=== PATIENT | male | born 1955 | race Caucasian/White ===

== ENCOUNTER 2020-11-01 05:18 | Inpatient (IN) ==
[2020-11-01] MEDS ORDERED: ONDANSETRON INJ 2 MG/ML 2 ML VIAL ONE (05:39)
[2020-11-01 05:47] LABS: Basophils # (auto) 0.02 K/uL (0-0.2); Basophils % (auto) 0.3 %; Eosinophils % (auto) 1.3 %; Hematocrit (blood only) 44.5 % (42-52); Hemoglobin 15.2 g/dL (14.0-18.0); Lymphocytes # (auto) 1.29 K/uL (1.2-3.4); Lymphocytes % (auto) 16.8 %; Mean Corpuscular Hemoglobin 32.4 pg (25-34); Mean Corpuscular Hgb Conc 34.2 g/dL (32-36); Mean Corpuscular Volume 94.9 fL (80-100); Mean Platelet Volume 10.4 fL (7.4-10.4); Monocytes # (auto) 0.49 K/uL (0.11-0.59); Monocytes % (auto) 6.4 %; Neutrophils # (auto) 5.79 K/uL (1.4-6.5); Neutrophils % (auto) 75.2 %; Platelet Count 261 K/uL (130-400); RDW Coefficient of Variation 12.9 % (11.5-14.5); RDW Standard Deviation 44.5 fL (36.4-46.3); Red Blood Count 4.69 M/uL (4.7-6.1); White Blood Count 7.69 K/uL (4.8-10.8)
--- NOTE | 2020-11-01 05:49 | Emergency Department Note ---
Impression & Plan Acute cerebrovascular accident (CVA), New onset a-fib ED Provider Note NAME: DEVIN ISAACS AGE: 65 SEX: M ARRIVES VIA: Ambulance INFORMANT: Patient ED PROVIDER(S): Raiza Jackson DO CHIEF COMPLAINT: Stroke PLAN: Disposition: Admitted to the ICU Condition: Stable MEDICAL DECISION MAKING: This is a 65-year-old male patient who presents to the emergency department with stroke symptoms. The patient went directly to CT scanner for CT of the brain, CTA of the head and neck. These were all negative. He was evaluated by Carina greene and met criteria for TPA. This was administered. His right-sided facial droop began to improve somewhat. I discussed the case with the patient's on the phone. I discussed the case with the [facility] hospitalist as well as the [facility] oil well services field supervisor. They will evaluate the patient for further management. Triage Nursing notes reviewed and agree with them. Additional history obtained from EMS Vital Signs: reviewed and remarkable for no significant abnormalities Differential diagnosis: Hypoglycemia, dehydration, intracranial hemorrhage, acute CVA, seizure ER treatment provided: IV tPA IV normal saline Diagnostics interpreted by me: ECG: Atrial fibrillation at a rate of 77. There is no ST segment elevation or signs of ischemia. There is no ectopy. Cardiac Monitoring: Atrial fibrillation at a rate of 75 Laboratory studies: See below Imaging studies: As per stat rad CT head: No ICH, mass-effect or edema. No evidence of acute cortical stroke. Visualized sinuses and mastoid air cells are clear. CTA head: Intracranial vascular structures including the anterior, middle and posterior cerebral arteries and basilar artery enhance normally. There is no enhancing mass. Dural sinuses enhance normally. Impression no vascular occlusion. CTA neck: Cervical vascular structures including the common carotid arteries, internal carotid arteries, and vertebral arteries and the joints normally with no aneurysmal dissection occlusions or stenosis. Soft tissues appear normal. Consultation(s): Dr. Medina-Carina greene None HPI: 65/M arrives for evaluation of stroke symptoms. 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 The patient noted that he had a headache and some slight dizziness. He took some Advil and got out of the truck. Once he was out of the truck, the headaches seem to worsen. He went inside the truck stop to take a shower and became very nauseated and started to vomit. Patient was unable to shower because of the dizziness and vomiting. As time passed, he noticed that he had some right-sided facial droop. ROS: See above HPI for pertinent positives & negatives. A total of 10 systems reviewed and were otherwise negative. PAST MEDICAL HISTORY:Hypothyroidism, GERD PAST SURGICAL HISTORY:See Below FAMILY HISTORY:See Below SOCIAL HISTORY:Patient works as a shuttle truck driver; he does not smoke or drink alcohol; he is HOME MEDICATIONS:Levothyroxine and Nexium ALLERGIES:None VITALS:See Below PHYSICAL EXAMINATION: HEENT: Head - normocephalic and atraumatic. Pupils are equal, round, and re active to light. Extraocular eye muscles are intact and sclera are anicteric. Ears - bilaterally patent canals with noninjected tympanic membranes and no evidence of hemotympanum. Nose - moist nasal mucosa without discharge. Mouth - moist buccal mucosa. Oropharynx is nonerythematous and there is no tonsillar exudate or edema noted. Neck: Supple; no JVD, nuchal rigidity, cervical lymphadenopathy, or auscultated bruits. Heart: Regular rate and rhythm. There is a normal S1 and S2 with no murmurs, clicks, or gallops appreciated. Lungs: Clear to auscultation bilaterally with no wheezes, rales, or rhonchi. Abdomen: Soft, completely nontender, nondistended, with good bowel sounds. There are no palpable pulsatile masses or hepatosplenomegaly. There is no guarding, rigidity, or rebound noted. Extremities: No evidence of cyanosis, clubbing, or edema. There are easily palpable peripheral pulses. Neuro:The patient is awake and alert, oriented to day, time, and place. Muscle strength is 5/5 in all 4 extremities. The patient has equal play leader strength and equal pedal push and pull. There are no cerebellar signs. Patient has obvious right-sided facial droop. The patient is having difficulty swallowing. ED COURSE: Times/Reassessments: 0520: The patient was evaluated in room B1. A complete history and physical was performed. A stroke alert had been called in the prehospital setting after medical command was received. Patient went directly to the CAT scanner. Upon returning to room B1 an order was placed for cont inuous cardiac monitoring. The patient was in atrial fibrillation at a rate of 75. An IV lock was initiated and a twelve-lead EKG was obtained as described above. Laboratory studies were drawn as above. I discussed the case with Dr. Medina from [facility]. He evaluated the patient. The patient was started on a normal saline drip after having a normal saline bolus. I discussed the case with Dr. Medina and he felt the patient was a candidate for TPA. I discussed with the pharmacist and it will be mixed. I contacted the patient's by phone. TPA was administered and the patient was observed very closely. I discussed the case with the [facility] Hospitalist as well as the Critical care medicine team. I have personally spent greater than 75 minutes of critical care time in the direct management of this patient. This includes bedside care, interpretation of diagnostic studies, and testing, discussion with consultants, patient, and family members, and other required patient management activities. This 75 minutes is in excess of all separately billable procedures. Raiza Jackson DO Past Med/Surg History Medical History (Updated 11/02/20 @ 00:57 by Raiza Jackson DO) Urinary retention Social History Smoking Status: Never smoker Hx Alcohol Use: No Hx Substance Use: No Preferred Language: Burundian Communication Ability: Effective Beliefs That Will Affect Care: None Current Living Situation: Spouse Feels Safe at Home: Yes Safety Concerns: Feels Safe At This Time Assistive Devices: None Allergies Allergies Allergy/AdvReac Type Severity Reaction Status Date / Time No Known Allergies Allergy Verified 11/01/20 06:00 Home Meds Home Medications Medication Instructions Recorded Confirmed esomeprazole magnesium [Nexium] 20 mg PO DAILY 11/01/20 11/01/20 levothyroxine 88 mcg PO DAILY 11/01/20 11/01/20 Results & Data (ED) Vital Signs Vital Signs - 24 hr 11/01/20 05:30 11/01/20 05:46 11/01/20 05:50 Temperature 35.0 C L Temperature Source Oral Pulse Rate 78 83 88 Pulse Rate [Apical] Pulse Rate from SpO2 Sensor 83 87 Respiratory Rate 20 20 20 Respiratory Effort / Characteristics Non-Labored Spontaneous Respiratory Depth Normal Blood Pressure 108/70 125/92 Blood Pressure [Left Arm] Blood Pressure Mean 82 103 Blood Pressure Mean [Left Arm] Pulse Oximetry 93 96 95 Oxygen Delivery Method Room Air Room Air Room Air Oxygen Flow Rate Sepsis New/Unexplained Change in Mental Status N/A Sepsis Action Taken by Nursing No Action Required 11/01/20 06:00 11/01/20 06:10 11/01/20 06:14 Temperature Temperature Source Pulse Rate 72 77 79 Pulse Rate [Apical] Pulse Rate from SpO2 Sensor 74 77 81 Respiratory Rate 18 16 16 Respiratory Effort / Characteristics Respiratory Depth Blood Pressure 134/80 152/85 H Blood Pressure [Left Arm] Blood Pressure Mean 98 107 Blood Pressure Mean [Left Arm] Pulse Oximetry 98 98 97 Oxygen Delivery Method Room Air Room Air Room Air Oxygen Flow Rate Sepsis New/Unexplained Change in Mental Status Sepsis Action Taken by Nursing 11/01/20 06:15 11/01/20 06:30 11/01/20 06:40 Temperature Temperature Source Pulse Rate 73 74 67 Pulse Rate [Apical] Pulse Rate from SpO2 Sensor 71 78 75 Respiratory Rate 18 18 18 Respiratory Effort / Characteristics Respiratory Depth Blood Pressure 152/85 H 140/98 Blood Pressure [Left Arm] Blood Pressure Mean 107 112 Blood Pressure Mean [Left Arm] Pulse Oximetry 98 95 96 Oxygen Delivery Method Room Air Room Air Room Air Oxygen Flow Rate Sepsis New/Unexplained Change in Mental Status Sepsis Action Taken by Nursing 11/01/20 06:45 11/01/20 06:50 11/01/20 07:00 Temperature Temperature Source Pulse Rate 79 70 Pulse Rate [Apical] 74 Pulse Rate from SpO2 Sensor 74 76 Respiratory Rate 18 18 18 Respiratory Effort / Characteristics Non-Labored Spontaneous Respiratory Depth Normal Blood Pressure Blood Pressure [Left Arm] 139/99 Blood Pressure Mean Blood Pressure Mean [Left Arm] 112 Pulse Oximetry 100 100 99 Oxygen Delivery Method Room Air Room Air Nasal Cannula Oxygen Flow Rate 2 Sepsis New/Unexplained Change in Mental Status Sepsis Action Taken by Nursing 11/01/20 07:01 11/01/20 07:10 Temperature Temperature Source Pulse Rate 69 79 Pulse Rate [Apical] Pulse Rate from SpO2 Sensor 80 81 Respiratory Rate 20 18 Respiratory Effort / Characteristics Respiratory Depth Blood Pressure 119/92 Blood Pressure [Left Arm] Blood Pressure Mean 101 Blood Pressure Mean [Left Arm] Pulse Oximetry 97 97 Oxygen Delivery Method Nasal Cannula Nasal Cannula Oxygen Flow Rate 2 2 Sepsis New/Unexplained Change in Mental Status Sepsis Action Taken by Nursing Laboratory Data Result diagrams: 11/01/20 05:32 11/01/20 05:32 Lab Results 11/01/20 11/01/20 11/01/20 Range/Units 05:32 05:32 05:32 WBC 7.69 (4.8-10.8) K/uL RBC 4.69 L (4.7-6.1) M/uL Hgb 15.2 (14.0-18.0) g/dL Hct 44.5 (42-52) % MCV 94.9 (80-100) fL MCH 32.4 (25-34) pg MCHC 34.2 (32-36) g/dL RDW Std Deviation 44.5 (36.4-46.3) fL RDW Coeff of Edmond 12.9 (11.5-14.5) % Plt Count 261 (130-400) K/uL MPV 10.4 (7.4-10.4) fL Immature Gran % (Auto) 0.0 % Neut % (Auto) 75.2 % Lymph % (Auto) 16.8 % [place] % (Auto) 6.4 % Eos % (Auto) 1.3 % Baso % (Auto) 0.3 % Neut # (Auto) 5.79 (1.4-6.5) K/uL Lymph # (Auto) 1.29 (1.2-3.4) K/uL [place] # (Auto) 0.49 (0.11-0.59) K/uL Eos # (Auto) 0.10 (0-0.5) K/uL Baso # (Auto) 0.02 (0-0.2) K/uL Immature Gran # (Auto) 0.00 (0.00-0.02) K/uL PT 10.2 (9.0-12.0) Seconds INR 1.0 (0.9-1.1) APTT 22.5 (21.0-31.0) Seconds PTT Ratio 0.9 Sodium (136-145) mmol/L Potassium (3.5-5.1) mmol/L Chloride (98-107) mmol/L Carbon Dioxide (21-32) mmol/L Anion Gap (3-11) BUN (7-18) mg/dl Creatinine (0.6-1.4) mg/dl Est Cr Clr Drug Dosing ml/min Est GFR ( Amer) ml/min Est GFR (Non-Af Amer) ml/min BUN/Creatinine Ratio (10-20) Glucose (70-99) mg/dl POC Glucose (70-99) mg/dl Calcium (8.5-10.1) mg/dl Magnesium (1.8-2.4) mg/dl Total Bilirubin (0.2-1) mg/dl AST (15-37) U/L ALT (12-78) U/L Alkaline Phosphatase (45-117) U/L Troponin I (0-0.045) ng/ml Total Protein (6.4-8.2) gm/dl Albumin (3.4-5.0) gm/dl Globulin (2.5-4.0) gm/dl Albumin/Globulin Ratio (0.9-2) COVID-19 Eval Order SARS-CoV-2 (PCR) (Negative) Blood Type Cancelled Antibody Screen Cancelled 11/01/20 11/01/20 11/01/20 Range/Units 05:32 05:40 06:06 WBC (4.8-10.8) K/uL RBC (4.7-6.1) M/uL Hgb (14.0-18.0) g/dL Hct (42-52) % MCV (80-100) fL MCH (25-34) pg MCHC (32-36) g/dL RDW Std Deviation (36.4-46.3) fL RDW Coeff of Edmond (11.5-14.5) % Plt Count (130-400) K/uL MPV (7.4-10.4) fL Immature Gran % (Auto) % Neut % (Auto) % Lymph % (Auto) % [place] % (Auto) % Eos % (Auto) % Baso % (Auto) % Neut # (Auto) (1.4-6.5) K/uL Lymph # (Auto) (1.2-3.4) K/uL [place] # (Auto) (0.11-0.59) K/uL Eos # (Auto) (0-0.5) K/uL Baso # (Auto) (0-0.2) K/uL Immature Gran # (Auto) (0.00-0.02) K/uL PT (9.0-12.0) Seconds INR (0.9-1.1) APTT (21.0-31.0) Seconds PTT Ratio Sodium 137 (136-145) mmol/L Potassium 3.6 (3.5-5.1) mmol/L Chloride 102 (98-107) mmol/L Carbon Dioxide 25 (21-32) mmol/L Anion Gap 10.0 (3-11) BUN 14 (7-18) mg/dl Creatinine 1.29 (0.6-1.4) mg/dl Est Cr Clr Drug Dosing 65.3 ml/min Est GFR ( Amer) 67.5 ml/min Est GFR (Non-Af Amer) 58.2 ml/min BUN/Creatinine Ratio 10.6 (10-20) Glucose 156 H (70-99) mg/dl POC Glucose 135 H (70-99) mg/dl Calcium 8.7 (8.5-10.1) mg/dl Magnesium 1.8 (1.8-2.4) mg/dl Total Bilirubin 1.2 H (0.2-1) mg/dl AST 19 (15-37) U/L ALT 23 (12-78) U/L Alkaline Phosphatase 78 (45-117) U/L Troponin I < 0.015 (0-0.045) ng/ml Total Protein 7.3 (6.4-8.2) gm/dl Albumin 3.8 (3.4-5.0) gm/dl Globulin 3.5 (2.5-4.0) gm/dl Albumin/Globulin Ratio 1.1 (0.9-2) COVID-19 Eval Order Covid19 at [facility] SARS-CoV-2 (PCR) (Negative) Blood Type Antibody Screen 11/01/20 Range/Units 06:06 WBC (4.8-10.8) K/uL RBC (4.7-6.1) M/uL Hgb (14.0-18.0) g/dL Hct (42-52) % MCV (80-100) fL MCH (25-34) pg MCHC (32-36) g/dL RDW Std Deviation (36.4-46.3) fL RDW Coeff of Edmond (11.5-14.5) % Plt Count (130-400) K/uL MPV (7.4-10.4) fL Immature Gran % (Auto) % Neut % (Auto) % Lymph % (Auto) % [place] % (Auto) % Eos % (Auto) % Baso % (Auto) % Neut # (Auto) (1.4-6.5) K/uL Lymph # (Auto) (1.2-3.4) K/uL [place] # (Auto) (0.11-0.59) K/uL Eos # (Auto) (0-0.5) K/uL Baso # (Auto) (0-0.2) K/uL Immature Gran # (Auto) (0.00-0.02) K/uL PT (9.0-12.0) Seconds INR (0.9-1.1) APTT (21.0-31.0) Seconds PTT Ratio Sodium (136-145) mmol/L Potassium (3.5-5.1) mmol/L Chloride (98-107) mmol/L Carbon Dioxide (21-32) mmol/L Anion Gap (3-11) BUN (7-18) mg/dl Creatinine (0.6-1.4) mg/dl Est Cr Clr Drug Dosing ml/min Est GFR ( Amer) ml/min Est GFR (Non-Af Amer) ml/min BUN/Creatinine Ratio (10-20) Glucose (70-99) mg/dl POC Glucose (70-99) mg/dl Calcium (8.5-10.1) mg/dl Magnesium (1.8-2.4) mg/dl Total Bilirubin (0.2-1) mg/dl AST (15-37) U/L ALT (12-78) U/L Alkaline Phosphatase (45-117) U/L Troponin I (0-0.045) ng/ml Total Protein (6.4-8.2) gm/dl Albumin (3.4-5.0) gm/dl Globulin (2.5-4.0) gm/dl Albumin/Globulin Ratio (0.9-2) COVID-19 Eval Order SARS-CoV-2 (PCR) NEGATIVE (Negative) Blood Type Antibody Screen Administered Medications Famotidine 20 mg/ Syringe 5 mls @ 2.5 mls/min IV BID RIMMA Stop: 12/01/20 17:29 Last Admin: 11/01/20 17:33 Dose: 2.5 mls/min Documented by: [id number] Discontinued Medications Alteplase, Recombinant (Tpa For Stroke) 1 ea IV NOW STA; Protocol Stop: 11/01/20 06:00 Last Admin: 11/01/20 07:18 Dose: Not Given Documented by: [id number] Alteplase, Recombinant 8.4 mg/ (Syringe) 8.4 mls @ 8.4 mls/min IV ONCE ONE Stop: 11/01/20 06:10 Last Admin: 11/01/20 06:13 Dose: 8.4 mls/min Documented by: [id number] Cosigned by: [id number] Alteplase, Recombinant 76 mg/ (EMPTY BAG) 76 mls @ 76 mls/hr IV ONCE ONE Stop: 11/01/20 06:11 Last Infusion: 11/01/20 07:17 Dose: 0 mls/hr Documented by: [id number] Cosigned by: [id number] Admin: 11/01/20 06:15 Dose: 76 mls/hr Documented by: [id number] Cosigned by: [id number] Sodium Chloride (Nss) 500 mls @ 999 mls/hr IV .Q31M ONE Stop: 11/01/20 06:57 Last Infusion: 11/01/20 07:02 Dose: 0 mls/hr Documented by: [id number] Admin: 11/01/20 06:30 Dose: 999 mls/hr Documented by: [id number] Sodium Chloride (Nss) 500 mls @ 125 mls/hr IV .Q4H RIMMA Stop: 12/01/20 06:29 Last Infusion: 11/01/20 10:48 Dose: 0 mls/hr Documented by: [id number] Admin: 11/01/20 10:47 Dose: Not Given Documented by: [id number] Admin: 11/01/20 06:54 Dose: 125 mls/hr Documented by: [id number] Ioversol (Optiray 320 125ml) 119 ml IV ONCE ONE Stop: 11/01/20 05:54 Last Admin: 11/01/20 05:53 Dose: 119 ml Documented by: [id number] Ondansetron HCl (Ondansetron Inj 2 Mg/Ml 2 Ml Vial) Confirm Administered Dose 4 mg .ROUTE .STK-MED ONE Stop: 11/01/20 05:40 Last Admin: 11/01/20 05:45 Dose: 4 mg Documented by: [id number] Pantoprazole Sodium (Pantoprazole 40 Mg Tab) 40 mg PO DAILY RIMMA Stop: 12/01/20 08:59 Last Admin: 11/01/20 10:41 Dose: Not Given Documented by: [id number] Imaging Data Radiologist's Impression: Brain MRI 11/01/20 07:12 MRI OF THE BRAIN WITHOUT CONTRAST CLINICAL HISTORY: stroke work up COMPARISON STUDY: Head CT and CTA of the head November 01, 2020 at 5:29 AM. TECHNIQUE: Utilizing a 1.5 Renee magnet and dedicated coil, multiplanar, multiecho imaging of the brain was performed without IV contrast. FINDINGS: Note is made of a 3 mm focus of increased signal intensity within the right posterior lateral aspect of the brainstem at the pontomedullary junction. Corresponding T2 hyperintense focus is noted. Correlation with ADC map is difficult given the small size however this favors an acute infarct. No additional foci of acute infarction are present. Ventricular system is normal. Basilar cisterns are patent. There are no extra-axial collections. No intracranial masses identified on this unenhanced exam. Multiple small white matter T2 hyperintense foci are noted. Calvarial signal is normal. There is mucosal thickening with a mucous retention cyst within the left maxillary sinus. IMPRESSION: 1. 3 mm focus of signal abnormality within the right posterolateral aspect of the brainstem at the pontomedullary junction. This favors a small acute infarct. No mass effect. No hemorrhage. 2. Multiple white matter T2 hyperintense foci likely reflect small vessel disease. ACT 112: Negative or not required by law. Electronically signed by: Andrés Padron M.D. 11/01/2020 4:53 PM Discharge Plan Visit Data Chief Complaint: Stroke Alert ED Provider: Raiza Jackson Discharge Problem: Acute cerebrovascular accident (CVA), New onset a-fib Patient Disposition: Admitted As Inpatient Discharge Instructions Interventions: ED Discharge Assessment Last Done: 11/01/20 09:14
[2020-11-01] MEDS ORDERED: OPTIRAY 320 125ml IV ONE (05:53)
[2020-11-01] MEDS ORDERED: TPA for Stroke IV STA (05:59)
[2020-11-01] MEDS ORDERED: No Aspirin within 24 hrs of TPA for Stroke PO SCH (06:00)
[2020-11-01 06:08] LABS: Alanine Aminotransferase 23 U/L (12-78); Albumin Level 3.8 gm/dl (3.4-5.0); Aspartate Aminotransferase 19 U/L (15-37); BUN Creatinine Ratio 10.6 (10-20); Blood Urea Nitrogen 14 mg/dl (7-18); Calcium 8.7 mg/dl (8.5-10.1); Chloride 102 mmol/L (98-107); Creatinine Clr Calc Pharmacy 65.3 ml/min; Est GFR (African American) 67.5 ml/min; Est GFR (Non-African American) 58.2 ml/min; Glucose 156 mg/dl (70-99); Magnesium 1.8 mg/dl (1.8-2.4); Potassium 3.6 mmol/L (3.5-5.1); Sodium 137 mmol/L (136-145)
[2020-11-01] MEDS ORDERED: Alteplase Bolus 8.4 MG in SYRINGE 0 ML IV ONE (06:09)
[2020-11-01] MEDS ORDERED: PRIMARY PLUMSET, PE LINED TUBING, 113 IN, NON-DEHP (2260-0500) IV ONE (06:10)
[2020-11-01] MEDS ORDERED: ALTEPLASE, RECOMBINANT 76 MG in EMPTY BAG 0 ML IV ONE (06:10)
[2020-11-01 06:14] LABS: Partial Thromboplastin Ratio 0.9; Partial Thromboplastin Time 22.5 Seconds (21.0-31.0); Prothrombin Time 10.2 Seconds (9.0-12.0)
[2020-11-01 06:16] LABS: Albumin Globulin Ratio 1.1 (0.9-2); Alkaline Phosphatase 78 U/L (45-117); Bilirubin,Total 1.2 mg/dl (0.2-1); Carbon Dioxide 25 mmol/L (21-32); Globulin 3.5 gm/dl (2.5-4.0); Total Protein 7.3 gm/dl (6.4-8.2); Troponin I < 0.015 ng/ml (0-0.045)
[2020-11-01] MEDS ORDERED: SODIUM CHLORIDE 0.9% 500 ML IV ONE (06:27)
[2020-11-01] MEDS: SODIUM CHLORIDE 0.9% 500 ML IV SCH ×2 (06:54→10:47)
--- NOTE | 2020-11-01 07:10 | History & Physical Report ---
Date of Service November 01, 2020 Assessment & Plan (1) Stroke-like symptoms: Patient presented with strokelike symptoms with facial droop and headache. Decision to give TPA was garnered via telestroke patiently brought in via the stroke order set for further neurological evaluation and be placed in the intensive care unit for the first 24 hours Neuro is considering brain stem stroke vs bells palsy, swallowing is affected and limiting po intake, this will also impact anticoagulation for afib, may need parenteral or sc initially (2) Atrial fibrillation: New diagnosis rate controlled atrial fibrillation seen, no prior history of the same, ECHO with preserved EF no shunt seen and no intracardiac thrombosis seen, not on any rate controlling medicaion will add metoprolol prn, check tsh in the am, check troponin in am again. As per neurology consult will consider starting full AC in am if [address] head is negative for interval hemorrhage this will also serve as DVT prevention, issue maybe lack of ability to swallow (3) GERD (gastroesophageal reflux disease): Patient be on Protonix (4) Hypothyroidism (acquired): Patient is Synthroid listed on his prior medication list we will check a TSH and T4 History of Present Illness Primary Care Provider: NO PCP 65/M arrives for evaluation of stroke symptoms. 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 The patient noted that he had a headache and some slight dizziness. He took some Advil and got out of the truck. Once he was out of the truck, the headaches seem to worsen. He went inside the truck stop to take a shower and became very nauseated and started to vomit. Patient was unable to shower because of the dizziness and vomiting. As time passed, he noticed that he had some right-sided facial droop. Pt was a stroke alert in the ER and it was determined to be a tPa candidate Allergies Allergy/AdvReac Type Severity Reaction Status Date / Time No Known Allergies Allergy Verified 11/01/20 06:00 Home Medications Medication Instructions Recorded Confirmed Type esomeprazole magnesium [Nexium] 20 mg PO DAILY 11/01/20 11/01/20 History levothyroxine 88 mcg PO DAILY 11/01/20 11/01/20 History Past Med/Surg History Medical History (Updated 11/01/20 @ 14:33 by Toni Dawson MD) Urinary retention Social History Smoking Status: Never smoker Hx Alcohol Use: No Hx Substance Use: No Preferred Language: Romanian Communication Ability: Effective Beliefs That Will Affect Care: None Current Living Situation: Spouse Feels Safe at Home: Yes Safety Concerns: Feels Safe At This Time Assistive Devices: Glasses Review of Systems Review of Systems: Mild distress and fatigue resolution of headache, no visual changes speech and swallowing affected by right facial droop no chest pain, pressure or palpitations no shortness of breath, cough or wheezes no abdominal pain, nausea or vomiting, diarrhea or constipation no dysuria, hematuria or frequency no focal joint pain or swelling no back pain, CVA tenderness or radicular pain no bruising, bleeding or rashes no focal right facial palsy, no other signs of weakness or numbness or altered sensation no complaints of anxiety or depression.. Physical Exam Physical Exam: The patient appeared well nourished and normally developed. Vital signs as documented. Head exam is normocephalic atraumatic, but right facial droop Neck is without JVD, thyromegaly, or carotid bruits. Lungs are clear to auscultation, no focal loss of breath sounds Cardiac exam, Rhythm is irregular.. No murmurs, rubs or gallops. 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 Skin is without bruises or rashes Psychologically is without concerns for anxiety or depression Results & Data Results & Data ([facility]) Vital Signs (Past 12 Hours) Vital Signs Temp Pulse Pulse Resp BP BP Pulse Ox 11/01/20 06:50 79 18 100 11/01/20 06:45 74 18 139/99 100 11/01/20 06:40 67 18 96 11/01/20 06:30 74 18 140/98 95 11/01/20 06:15 73 18 152/85 H 98 11/01/20 06:14 79 16 152/85 H 97 11/01/20 06:10 77 16 98 11/01/20 06:00 72 18 134/80 98 11/01/20 05:50 88 20 95 11/01/20 05:46 83 20 125/92 96 11/01/20 05:30 95.0 F L 78 20 108/[address] 11/01/20 05:22 CT head/brain wo con CLINICAL HISTORY: Stroke Like Symptoms COMPARISON STUDY: No previous studies for comparison. TECHNIQUE: Axial CT of the brain is performed from the vertex to the skull base. IV contrast was not administered for this examination. A dose lowering technique was utilized adhering to the principles of ALARA. CT DOSE: 1194.53 mGy.cm FINDINGS: No intra or extra-axial mass lesions are visualized. There is no CT evidence of acute cortical infarction. There is no evidence of midline shift. There is no acute hemorrhage. No acute depressed calvarial fractures are visualized. There are patchy white matter hypodensities likely on a small vessel basis. There is no evidence of pathologic ventricular dilatation. Minimal opacification of the left maxillary sinus is seen. The rest of visualized paranasal sinuses and mastoid air cells are patent and well-aerated. IMPRESSION: 1. No acute intracranial hemorrhage, no midline shift or space occupying lesions. 2. Additional findings as above. ACT 112: Negative or not required by law. The above report was generated using voice recognition software. It may contain grammatical, syntax or spelling errors. Electronically signed by: Blanca More DO 11/01/2020 10:27 AM Head CTA 11/01/20 05:22 CT angio head w con CLINICAL HISTORY: Stroke Like Symptoms TECHNIQUE: CT angiography of the head was performed in a dynamic helical fashion during intravenous administration of 119 cc of Optiray. MIP imaging was performed. A dose lowering technique was utilized adhering to the principles of ALARA. CT DOSE: COMPARISON STUDY: No previous studies for comparison. FINDINGS: Bilateral middle cerebral arteries are patent and normally opacified. Mild diffuse narrowing of the left anterior communicating artery without focal occlusion, might represent developmental variant. Right and left anterior cerebral arteries are patent. Basilar artery is normally opacified. Right posterior cerebral artery is normally opacified without for focal occlusion or aneurysmal dilatation. Partial origin of the left posterior cerebral artery is seen. No evidence of focal occlusion, significant stenosis or aneurysmal dilatation. IMPRESSION: 1. There is no focal occlusion or aneurysmal dilatation. 2. Minimal diffuse narrowing of the left anterior communicating artery is seen without focal occlusion which might represent developmental variant. ACT 112: Negative or not required by law. The above report was generated using voice recognition software. It may contain grammatical, syntax or spelling errors. Electronically signed by: Blanca More DO 11/01/2020 10:43 AM Neck CTA 11/01/20 05:22 CT angio neck with con CLINICAL HISTORY: Stroke Like Symptoms COMPARISON STUDY: No previous studies for comparison. TECHNIQUE: CT angiography was performed from the aortic arch to the skull base. MIP imaging was performed. The patient was scanned in a dynamic helical fashion during intravenous administration of cc of Optiray. A dose lowering technique was utilized adhering to the principles of ALARA. CT DOSE: Technique: CT angiogram of the carotid and vertebral arteries was obtained using intravenous contrast and 3-D reconstruction. NASCET criteria was utilized. Findings: Minimal peripheral atherosclerotic plaques are seen within cavernosal and supra clinoid portion of bilateral carotid arteries without hemodynamically significant stenosis. The right carotid revealed no evidence of aneurysm and no evidence of dissection. There is no evidence of hemodynamic significant stenosis. The left carotid revealed no evidence of hemodynamic significant stenosis. There is no evidence of aneurysm. There is no evidence of dissection. There is no evidence of hemodynamically significant vertebral stenosis. There is no evidence of vertebral dissection. Thyroid gland is not well seen. There is no evidence of pneumothorax lesion Julys lung apices. IMPRESSION: No evidence of hemodynamically significant carotid or vertebral artery stenosis. No evidence of dissection. ACT 112: Negative or not required by law. The above report was generated using voice recognition software. It may contain grammatical, syntax or spelling errors. Electronically signed by: Blanca More DO 11/01/2020 10:34 AM PG Care Time/CCT Total # of Minutes Spent Total Time Spent with Patient: Total time spent is greater than 50% in coordination of care (as documented) at patient's floor/unit and/or counseling patient: Coding Level of Care Code 33804 Initial Inpt Care Lvl 3 Diagnoses Stroke-like symptoms R29.90 Atrial fibrillation I48.91 GERD (gastroesophageal reflux disease) K21.9 Hypothyroidism (acquired) E03.9
[2020-11-01] MEDS ORDERED: ICU PROTOCOL FOR HYPERGLYCEMIA PRN (07:12)
[2020-11-01] MEDS ORDERED: PHARMACIST DISCHARGE MED REC CONSULT PRN (07:12)
[2020-11-01] MEDS ORDERED: PANTOprazole 40 MG TAB PO SCH (09:00)
--- NOTE | 2020-11-01 10:27 | XCELERA ---
[id number]
--- NOTE | 2020-11-01 10:28 | CT Scan Report ---
CT head/brain wo con CLINICAL HISTORY: Stroke Like Symptoms COMPARISON STUDY: No previous studies for comparison. TECHNIQUE: Axial CT of the brain is performed from the vertex to the skull base. IV contrast was not administered for this examination. A dose lowering technique was utilized adhering to the principles of ALARA. CT DOSE: 1194.53 mGy.cm FINDINGS: No intra or extra-axial mass lesions are visualized. There is no CT evidence of acute cortical infarc tion. There is no evidence of midline shift. There is no acute hemorrhage. No acute depressed calvar ial fractures are visualized. There are patchy white matter hypodensities likely on a small vessel basis. There is no evidence of pathologic ventricular dilatation. Minimal opacification of the left maxillary sinus is seen. The rest of visualized paranasal sinuses a nd mastoid air cells are patent and well-aerated. IMPRESSION: 1. No acute intracranial hemorrhage, no midline shift or space occupying lesions. 2. Additional findings as above. ACT 112: Negative or not required by law. The above report was generated using voice recognition software. It may contain grammatical, syntax o r spelling errors. Electronically signed by: Blanca More DO 11/01/2020 10:27 AM
--- NOTE | 2020-11-01 10:35 | CT Scan Report ---
CT angio neck with con CLINICAL HISTORY: Stroke Like Symptoms COMPARISON STUDY: No previous studies for comparison. TECHNIQUE: CT angiography was performed from the aortic arch to the skull base. MIP imaging was perfo rmed. The patient was scanned in a dynamic helical fashion during intravenous administration of cc of Optiray. A dose lowering technique was utilized adhering to the principles of ALARA. CT DOSE: Technique: CT angiogram of the carotid and vertebral arteries was obtained using intravenous contrast and 3-D reconstruction. NASCET criteria was utilized. Findings: Minimal peripheral atherosclerotic plaques are seen within cavernosal and supra clinoid portion of bi lateral carotid arteries without hemodynamically significant stenosis. The right carotid revealed no evidence of aneurysm and no evidence of dissection. There is no evidenc e of hemodynamic significant stenosis. The left carotid revealed no evidence of hemodynamic significant stenosis. There is no evidence of an eurysm. There is no evidence of dissection. There is no evidence of hemodynamically significant vertebral stenosis. There is no evidence of verte bral dissection. Thyroid gland is not well seen. There is no evidence of pneumothorax lesion Julys lung apices. IMPRESSION: No evidence of hemodynamically significant carotid or vertebral artery stenosis. No evidence of disse ction. ACT 112: Negative or not required by law. The above report was generated using voice recognition software. It may contain grammatical, syntax o r spelling errors. Electronically signed by: Blanca More DO 11/01/2020 10:34 AM
--- NOTE | 2020-11-01 10:44 | CT Scan Report ---
CT angio head w con CLINICAL HISTORY: Stroke Like Symptoms TECHNIQUE: CT angiography of the head was performed in a dynamic helical fashion during intravenous a dministration of 119 cc of Optiray. MIP imaging was performed. A dose lowering technique was utilized adhering to the principles of ALARA. CT DOSE: COMPARISON STUDY: No previous studies for comparison. FINDINGS: Bilateral middle cerebral arteries are patent and normally opacified. Mild diffuse narrowing of the left anterior communicating artery without focal occlusion, might repre sent developmental variant. Right and left anterior cerebral arteries are patent. Basilar artery is normally opacified. Right posterior cerebral artery is normally opacified without for focal occlusion or aneurysmal dilat ation. Partial origin of the left posterior cerebral artery is seen. No evidence of focal occlusion, s ignificant stenosis or aneurysmal dilatation. IMPRESSION: 1. There is no focal occlusion or aneurysmal dilatation. 2. Minimal diffuse narrowing of the left anterior communicating artery is seen without focal occlusi on which might represent developmental variant. ACT 112: Negative or not required by law. The above report was generated using voice recognition software. It may contain grammatical, syntax o r spelling errors. Electronically signed by: Blanca More DO 11/01/2020 10:43 AM
--- NOTE | 2020-11-01 11:02 | Critical Care Consultation ---
Date of Consultation November 01, 2020 Assessment & Plan (1) Stroke-like symptoms: Continue with post TPA protocol. CT had to be completed in 24 hours. Echo completed and reviewed. MRI completed with results pending. Appreciate neurology and cardiology consultation. Will need to consider addition of anticoagulation given his atrial fibrillation. He is rate controlled intrinsically at this time. Speech, PT and OT consultations have been placed. He did have some trouble with urinary retention, but was able to void on his own. We will continue to monitor. We will obtain a urinalysis. ICU team will continue to follow him while he is in the ICU per protocol. (2) Atrial fibrillation: (3) Urinary retention: History of Present Illness Reason for Consultation: 65-year-old male who presented to the ER due to strokelike symptoms. He woke up via alarm clock today at 3 AM while sleeping in his truck. He had a headache and dizziness. He also was very nauseated and started to vomit. He noticed some right-sided facial droop. He came to the emergency department and ultimately received TPA for concerns of an ischemic stroke. Alteplase was administered at 6:15 AM on 11/01/2020. He did undergo a CT head which did not demonstrate any acute intracranial hemorrhage or space- occupying lesions. Patchy white matter hypodensities were seen likely on a small vessel basis. CTA of the head demonstrated minimal diffuse narrowing of the left anterior communicating artery without focal occlusion. Neck CTA without evidence of a hemodynamically significant carotid or vertebral artery stenosis. Labs and vital signs have been unremarkable. EKG was completed in the ER and demonstrated evidence of atrial fibrillation. Echocardiogram completed today demonstrated mild concentric left ventricular hy pertrophy. Mild mitral regurgitation. RVSP pressures normal. LV function normal. No intra-arterial shunt was seen on echo. Patient is still complaining of dysarthria and difficulty with swallowing. He also continues to have facial droop on the right. He quit smoking 17 years ago. He smoked roughly 1 pack a day for 25 years. Attending Physician: Toni Dawson MD Allergies Allergy/AdvReac Type Severity Reaction Status Date / Time No Known Allergies Allergy Verified 11/01/20 06:00 Home Medications Medication Instructions Recorded Confirmed Type esomeprazole magnesium [Nexium] 20 mg PO DAILY 11/01/20 11/01/20 History levothyroxine 88 mcg PO DAILY 11/01/20 11/01/20 History Patient History Medical History (Updated 11/01/20 @ 13:28 by Charli Cabrera MD) Urinary retention Social History Smoking Status: Never smoker Hx Alcohol Use: No Hx Substance Use: No Preferred Language: Guyanese Communication Ability: Effective Beliefs That Will Affect Care: None Current Living Situation: Spouse Feels Safe at Home: Yes Safety Concerns: Feels Safe At This Time Assistive Devices: Glasses Review of Systems Review of Systems: All systems reviewed & are unremarkable except as noted in HPI & below Physical Exam Constitutional: WD/WN, vitals as above Eyes: PERRL, conjunctivae normal, anicteric sclerae ENMT: external ear and nose normal, oropharynx normal Neck: normal visual inspection Respiratory: normal respiratory effort, lungs clear to auscultation Cardiovascular: RRR, no murmur, no edema Gastrointestinal (Abdomen): normal bowel sounds, soft, nontender, no hepatosplenomegaly Skin: no rashes, warm and dry Neurologic: Right facial droop. Dysarthria. Psychiatric: A+Ox3, euthymic affect Results & Data Results & Data ([facility]) Vital Signs (Past 12 Hours) Vital Signs Temp Pulse Pulse Resp BP BP Pulse Ox 11/01/20 09:46 82 15 99 11/01/20 09:45 97.7 F 80 16 143/89 H 96 11/01/20 09:44 78 19 143/89 H 98 11/01/20 09:31 97.7 F 86 20 128/86 95 11/01/20 09:30 83 16 99 11/01/20 09:16 92 H 21 99 11/01/20 09:14 97.7 F 74 14 128/86 97 11/01/20 08:50 80 100 11/01/20 08:45 73 18 130/87 99 11/01/20 08:40 70 100 11/01/20 08:30 69 20 130/92 99 11/01/20 08:26 79 128/89 100 11/01/20 08:20 78 98 11/01/20 08:10 74 100 11/01/20 08:00 76 18 133/88 100 11/01/20 07:50 84 18 97 11/01/20 07:46 71 20 106/80 99 11/01/20 07:45 92 H 20 11/01/20 07:30 75 18 137/80 99 11/01/20 07:20 72 99 11/01/20 07:15 82 126/91 98 11/01/20 07:10 79 18 97 11/01/20 07:01 69 20 119/92 97 11/01/20 07:00 70 18 99 11/01/20 06:50 79 18 100 11/01/20 06:45 74 18 139/99 100 11/01/20 06:40 67 18 96 11/01/20 06:30 74 18 140/98 95 11/01/20 06:15 73 18 152/85 H 98 11/01/20 06:14 79 16 152/85 H 97 11/01/20 06:10 77 16 98 11/01/20 06:00 72 18 134/80 98 11/01/20 05:50 88 20 95 11/01/20 05:46 83 20 125/92 96 11/01/20 05:30 95.0 F L 78 20 108/70 93 Vital signs, labs and imaging reviewed Coding Level of Care Code 02403 Inpt Consult Level 5 Diagnoses Stroke-like symptoms R29.90 Atrial fibrillation I48.91 Urinary retention R33.9
--- NOTE | 2020-11-01 11:03 | Electrocardiogram Report ---
Test Reason : Blood Pressure : / mmHG Vent. Rate : 077 BPM Atrial Rate : 250 BPM P-R Int : 000 ms QRS Dur : 094 ms QT Int : 402 ms P-R-T Axes : 000 021 043 degrees QTc Int : 454 ms Atrial fibrillation Abnormal ECG No previous ECGs available Confirmed by Shlomo Mueller ([id number]) on 11/01/2020 11:03:45 AM Referred By: Confirmed By:Adrien Mueller
--- NOTE | 2020-11-01 11:04 | Neurology Consultation ---
Date of Consultation November 01, 2020 Assessment & Plan (1) Stroke-like symptoms: Patient's clinical presentation could be consistent with a small brainstem stroke. However, a Duarte's palsy could appear similar and may not be completely excluded. He does appear to have atrial fibrillation which would be a notable stroke risk factor for this patient. He did receive TPA early this morning in the emergency department and a brain MRI is pending at this time. Would continue with post TPA protocol. Plan for follow-up CT of the head tomorrow to exclude interval hemorrhage. Antiplatelet therapy may be started 24 hours after administration of TPA. Consider starting anticoagulation after 24 hours of administration of TPA in light of atrial fibrillation, especially if brain MRI reveals evidence of acute infarct. Speech and swallowing evaluation. 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 He was evaluated in the emergency department and had an unremarkable CT of the head and CT angiogram of the head and neck. He had a telestroke consultation and was subsequently administered TPA. He continues to report severe right facial weakness, slurred speech, and difficulty swallowing. These symptoms have not changed. He denies headache or dizziness at this time. He denies experiencing any associated weakness or sensory loss of the limbs. No vision loss or diplopia. Outpatient medications included only Nexium and levothyroxine. Electrocardiogram revealed atrial fibrillation. Brain MRI pending. Past medical history notable for hypothyroidism and GERD, taking levothyroxine and Nexium as above. No known history of stroke or TIA. Family history noncontributory Allergies Allergy/AdvReac Type Severity Reaction Status Date / Time No Known Allergies Allergy Verified 11/01/20 06:00 Home Medications Medication Instructions Recorded Confirmed Type esomeprazole magnesium [Nexium] 20 mg PO DAILY 11/01/20 11/01/20 History levothyroxine 88 mcg PO DAILY 11/01/20 11/01/20 History Patient History Social History Smoking Status: Never smoker Hx Alcohol Use: No Hx Substance Use: No Preferred Language: Swedish Communication Ability: Effective Beliefs That Will Affect Care: None Current Living Situation: Spouse Feels Safe at Home: Yes Safety Concerns: Feels Safe At This Time Assistive Devices: Glasses Review of Systems Constitutional: no fever and no chills Eyes: no blind spots and no diplopia Ear, Nose, Mouth, Throat: no ear pain and no hearing loss Respiratory: no cough and no dyspnea Cardiovascular: no chest pain and no palpitations Gastrointestinal: as per Subjective / HPI and + nausea Genitourinary: no dysuria Musculoskeletal: no myalgia Integumentary: no rash and no lesions Neurologic: as per Subjective / HPI Psychiatric: no depression and no anxiety Hematologic / Lymphatic: no easy bleeding and no easy bruising Exam (Neuro) Constitutional: well developed and well nourished; no acute distress Eyes: normal visual cuellar by confrontation, PERRL, normal accommodation and EOM intact bilaterally; no fundoscopic abnormality, no nystagmus and no papilledema Cardiovascular: Vessels: normal carotid upstroke; no carotid bruit Neurologic: Oriented to:: Person, Place and Time Memory: Short Term Intact and Remote Intact Attention: Span Intact and Concentration Intact Language: Naming Objects and Repeating Phrases Speech Fluency: Dysarthria Speech Aphasia: negative Aphasia Fund of Knowledge: Current Events, Past History and Vocabulary Cranial Nerves: Normal II (Visual cuellar full to confrontation, visual acuity normal), III, IV, (Pupils equal round reactive to light and accommodation, eye movements normal), V (Facial sensation intact), VIII (Hearing intact), IX, X (Palate elevates to midline), XI (Shoulder shrug intact) and XII (Tongue protrudes to midline); Abnorm VII (There is severe right lower facial weakness and mild weakness of the right upper facial musculature with diminished brow furrow and slight weakness of right eyelid closure.) Motor Strength: Normal Lower Extremities and Normal Upper Extremities; negative Pronator Drift Motor Tone: Normal Lower Extremities and Normal Upper Extremities Muscle Bulk/Involuntary Movements: No Involuntary Movements; negative Muscle Atrophy Sensation: Light Touch Intact, Pain/Temperature Intact, Vibration Intact and Proprioception Intact Coordination: Normal; negative Limited Balance, Dysdiadochokinesia, Finger-Nose Abnormal and Heel-Zamora Abnormal Deep Tendon Reflexes: Rt Triceps: 2+, Lt Triceps: 2+, Rt Biceps: 2+, Lt Biceps: 2+, Rt Brachioradialis: 2+, Lt Brachioradialis: 2+, Rt Patellar: 2+, Lt Patellar: 2+, Rt Ankle: 2+ and Lt Ankle: 2+ Special Tests: negative Babinski Present Details: Gait not tested in the context of patient's current neurological status. Results & Data ([facility]) Vital Signs (Past 12 Hours) Vital Signs Temp Pulse Pulse Resp BP BP Pulse Ox 11/01/20 09:46 82 15 99 11/01/20 09:45 36.5 C 80 16 143/89 H 96 11/01/20 09:44 78 19 143/89 H 98 11/01/20 09:31 36.5 C 86 20 128/86 95 11/01/20 09:30 83 16 99 11/01/20 09:16 92 H 21 99 11/01/20 09:14 36.5 C 74 14 128/86 97 11/01/20 08:50 80 100 11/01/20 08:45 73 18 130/87 99 11/01/20 08:40 70 100 11/01/20 08:30 69 20 130/92 99 11/01/20 08:26 79 128/89 100 11/01/20 08:20 78 98 11/01/20 08:10 74 100 11/01/20 08:00 76 18 133/88 100 11/01/20 07:50 84 18 97 11/01/20 07:46 71 20 106/80 99 11/01/20 07:45 92 H 20 11/01/20 07:30 75 18 137/80 99 11/01/20 07:20 72 99 11/01/20 07:15 82 126/91 98 11/01/20 07:10 79 18 97 11/01/20 07:01 69 20 119/92 97 11/01/20 07:00 70 18 99 11/01/20 06:50 79 18 100 11/01/20 06:45 74 18 139/99 100 11/01/20 06:40 67 18 96 11/01/20 06:30 74 18 140/98 95 11/01/20 06:15 73 18 152/85 H 98 11/01/20 06:14 79 16 152/85 H 97 11/01/20 06:10 77 16 98 11/01/20 06:00 72 18 134/80 98 11/01/20 05:50 88 20 95 11/01/20 05:46 83 20 125/92 96 11/01/20 05:30 35.0 C L 78 20 108/70 93 Laboratory Results WBC 7.69, hemoglobin 15.2, hematocrit 44.5, platelet count 261, sodium 137, potassium 3.6, BUN 14, creatinine 1.29, glucose 156, magnesium 1.8, AST 19, ALT 23, troponin less than 0.015 Diagnostic Findings Imaging including CT of the head and CT angiography of the head and neck are as described in the history of present illness. I reviewed the images as well as the radiologist's interpretation of these tests. Electrocardiogram reveals atrial fibrillation, 77 bpm. An echocardiogram reveals normal left ventricular systolic function, mild concentric left ventricular hypertrophy, mild mitral regurgitation, no interatrial shunt with injection of contrast. Coding Level of Care Code 54283 Inpt Consult Level 5 Diagnoses Stroke-like symptoms R29.90
--- NOTE | 2020-11-01 12:05 | Cardiology Consultation ---
Date of Consultation November 01, 2020 Assessment & Plan (1) Atrial fibrillation: He apparently does not have a history of atrial fibrillation. He has not noticed any symptoms associated with atrial fibrillation. Surprisingly, his heart rate is normal. The duration of his atrial fibrillation is unknown. He does not appear to have risk factors for atrial fibrillation other than his age. He does not give a good history for obstructive sleep apnea, but his says he does snore on occasion. He has no history of hypertension but did have some LVH on echocardiography suggesting that he could have untreated high blood pressure. No severe valvular heart disease. He does take a thyroid supplement and we can check thyroid levels tomorrow, but I think hyperthyroidism is also unlikely. Whether he has paroxysmal atrial fibrillation or more permanent form is unclear. I do not believe there is any urgency in returning him to a sinus rhythm. He does not appear to require any rate control medications. The most pertinent issue surrounds anticoagulation. Clearly if he has had an embolic cerebrovascular event and he will require lifelong anticoagulation. Given his normal renal function use of any of the novel agents would be reasonable. Xarelto 20 mg daily or Eliquis 5 mg twice daily would be a good choice. AP truly had an embolic stroke then anticoagulation could be started at the discretion of his neurologist. Interestingly, if he has not had evidence of an embolic stroke, his chads Vasc score is 0. A score of 0 would suggest that there is no benefit to anticoagulation. It is possible that he simply has undiagnosed high blood pressure, but in the absence of that diagnosis he does not appear to have other risk factors for stroke. We can have a discussion regarding the benefits of anticoagulation once we have established whether his current symptoms are related to an embolic stroke. (2) Mitral regurgitation: Mild on echocardiogram. Not contributing to symptoms. This can be followed over time. (3) Left ventricular hypertrophy: Mild. Possibly indicative of untreated hypertension. History of Present Illness Reason for Consultation: Atrial fibrillation Requesting Physician: Rick Attending Physician: Toni Dawson MD History of Present Illness The patient is a 65-year-old gentleman with a history of hypothyroidism who [facility] with facial droop, difficulty swallowing and talking. He also appeared to have some nausea. All this began when he was woken early this morning. 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 In the emergency room he was treated as an acute stroke. He was given thrombolytic agents. He was also noted to have atrial fibrillation. Patient was sent to the intensive care unit for observation. Patient states that he has been unaware of any irregularity in his heart rate. He did not endorse symptoms of palpitations. He generally does not have symptoms of dizziness or lightheadedness. He appears to have a normal exercise tolerance and has noted notice any change in his exercise abilities recently. He denies exertional dyspnea. He denies chest pain at rest or with activity. He denies difficulty sleeping. No orthopnea or paroxysmal nocturnal dyspnea. No history of syncope. Allergies Allergy/AdvReac Type Severity Reaction Status Date / Time No Known Allergies Allergy Verified 11/01/20 06:00 Home Medications Medication Instructions Recorded Confirmed Type esomeprazole magnesium [Nexium] 20 mg PO DAILY 11/01/20 11/01/20 History levothyroxine 88 mcg PO DAILY 11/01/20 11/01/20 History Patient History Social History Smoking Status: Never smoker Hx Alcohol Use: No Hx Substance Use: No Preferred Language: Khmer Communication Ability: Effective Beliefs That Will Affect Care: None Current Living Situation: Spouse Feels Safe at Home: Yes Safety Concerns: Feels Safe At This Time Assistive Devices: Glasses Review of Systems Review of Systems: All systems reviewed & are unremarkable except as noted in HPI & below Per HPI Physical Exam Physical Exam: The patient is alert and oriented. Mood and affect appeared normal. He answered all questions appropriately. HEENT: Pupils are equal and reactive to light and accommodation. The sclerae are anicteric. Neuro: Right facial droop. Some difficulty with speech. Neck: Patient's neck is supple. He has palpable carotid pulses bilaterally without bruits on auscultation. There is no evidence of jugular venous distention. The thyroid is not enlarged. Lungs: Clear to auscultation bilaterally. He has good air movement without use of accessory muscles. No rales wheezes or rhonchi. Cardiac: Heart demonstrates an irregular rhythm but normal rate. Normal S1 and S2. No murmurs on examination. Pulses: The patient has palpable radial pulses bilaterally that are equal in intensity Extremities: There was no evidence of hypoperfusion. There is no cyanosis or clubbing. There is no edema. Skin: I did not appreciate any rashes on examination today. Results & Data ([facility]) Vital Signs (Past 12 Hours) Vital Signs Temp Pulse Pulse Resp BP BP Pulse Ox 11/01/20 11:45 36.5 C 77 18 139/99 98 11/01/20 11:15 36.5 C 82 19 131/93 98 11/01/20 10:45 36.5 C 86 20 148/94 H 94 11/01/20 10:15 36.5 C 81 15 115/74 96 11/01/20 09:46 82 15 99 11/01/20 09:45 36.5 C 80 16 143/89 H 96 11/01/20 09:44 78 19 143/89 H 98 11/01/20 09:31 36.5 C 86 20 128/86 95 11/01/20 09:30 83 16 99 11/01/20 09:16 92 H 21 99 11/01/20 09:14 36.5 C 74 14 128/86 97 11/01/20 08:50 80 100 11/01/20 08:45 73 18 130/87 99 11/01/20 08:40 70 100 11/01/20 08:30 69 20 130/92 99 11/01/20 08:26 79 128/89 100 11/01/20 08:20 78 98 11/01/20 08:10 74 100 11/01/20 08:00 76 18 133/88 100 11/01/20 07:50 84 18 97 11/01/20 07:46 71 20 106/80 99 11/01/20 07:45 92 H 20 11/01/20 07:30 75 18 137/80 99 11/01/20 07:20 72 99 11/01/20 07:15 82 126/91 98 11/01/20 07:10 79 18 97 11/01/20 07:01 69 20 119/92 97 11/01/20 07:00 70 18 99 11/01/20 06:50 79 18 100 11/01/20 06:45 74 18 139/99 100 11/01/20 06:40 67 18 96 11/01/20 06:30 74 18 140/98 95 11/01/20 06:15 73 18 152/85 H 98 11/01/20 06:14 79 16 152/85 H 97 11/01/20 06:10 77 16 98 11/01/20 06:00 72 18 134/80 98 11/01/20 05:50 88 20 95 11/01/20 05:46 83 20 125/92 96 11/01/20 05:30 35.0 C L 78 20 108/70 93 Laboratory Results Abnormal Lab Results 11/01/20 11/01/20 11/01/20 05:32 05:32 05:32 WBC 7.69 RBC 4.69 L Hgb 15.2 Hct 44.5 MCV 94.9 MCH 32.4 MCHC 34.2 RDW Std Deviation 44.5 RDW Coeff of Edmond 12.9 Plt Count 261 MPV 10.4 Immature Gran % (Auto) 0.0 Neut % (Auto) 75.2 Lymph % (Auto) 16.8 Bonner % (Auto) 6.4 Eos % (Auto) 1.3 Baso % (Auto) 0.3 Neut # (Auto) 5.79 Lymph # (Auto) 1.29 Bonner # (Auto) 0.49 Eos # (Auto) 0.10 Baso # (Auto) 0.02 Immature Gran # (Auto) 0.00 PT 10.2 INR 1.0 APTT 22.5 PTT Ratio 0.9 Sodium Potassium Chloride Carbon Dioxide Anion Gap BUN Creatinine Est Cr Clr Drug Dosing Est GFR ( Amer) Est GFR (Non-Af Amer) BUN/Creatinine Ratio Glucose POC Glucose Calcium Magnesium Total Bilirubin AST ALT Alkaline Phosphatase Troponin I Total Protein Albumin Globulin Albumin/Globulin Ratio Nasal Screen MRSA (PCR) COVID-19 Eval Order SARS-CoV-2 (PCR) Blood Type Cancelled Antibody Screen Cancelled 11/01/20 11/01/20 11/01/20 05:32 05:40 06:06 WBC RBC Hgb Hct MCV MCH MCHC RDW Std Deviation RDW Coeff of Edmond Plt Count MPV Immature Gran % (Auto) Neut % (Auto) Lymph % (Auto) Bonner % (Auto) Eos % (Auto) Baso % (Auto) Neut # (Auto) Lymph # (Auto) Bonner # (Auto) Eos # (Auto) Baso # (Auto) Immature Gran # (Auto) PT INR APTT PTT Ratio Sodium 137 Potassium 3.6 Chloride 102 Carbon Dioxide 25 Anion Gap 10.0 BUN 14 Creatinine 1.29 Est Cr Clr Drug Dosing 65.3 Est GFR ( Amer) 67.5 Est GFR (Non-Af Amer) 58.2 BUN/Creatinine Ratio 10.6 Glucose 156 H POC Glucose 135 H Calcium 8.7 Magnesium 1.8 Total Bilirubin 1.2 H AST 19 ALT 23 Alkaline Phosphatase 78 Troponin I < 0.015 Total Protein 7.3 Albumin 3.8 Globulin 3.5 Albumin/Globulin Ratio 1.1 Nasal Screen MRSA (PCR) COVID-19 Eval Order Covid19 at [facility] SARS-CoV-2 (PCR) Blood Type Antibody Screen 11/01/20 11/01/20 06:06 09:45 WBC RBC Hgb Hct MCV MCH MCHC RDW Std Deviation RDW Coeff of Edmond Plt Count MPV Immature Gran % (Auto) Neut % (Auto) Lymph % (Auto) Bonner % (Auto) Eos % (Auto) Baso % (Auto) Neut # (Auto) Lymph # (Auto) Bonner # (Auto) Eos # (Auto) Baso # (Auto) Immature Gran # (Auto) PT INR APTT PTT Ratio Sodium Potassium Chloride Carbon Dioxide Anion Gap BUN Creatinine Est Cr Clr Drug Dosing Est GFR ( Amer) Est GFR (Non-Af Amer) BUN/Creatinine Ratio Glucose POC Glucose Calcium Magnesium Total Bilirubin AST ALT Alkaline Phosphatase Troponin I Total Protein Albumin Globulin Albumin/Globulin Ratio Nasal Screen MRSA (PCR) Negative COVID-19 Eval Order SARS-CoV-2 (PCR) NEGATIVE Blood Type Antibody Screen Echocardiogram Diagnostic Findings Revealed preserved LV systolic function with mild LVH and mild mitral regurgitation. Head CT did not demonstrate any Acute intracranial process CTA of the head and neck did not reveal any notable abnormalities PG Care Time/CCT Total # of Minutes Spent Total Time Spent with Patient: Total time spent is greater than 50% in coordination of care (as documented) at patient's floor/unit and/or counseling patient: Coding Level of Care Code 91436 Office/OBS Consult Lvl 4 Diagnoses Atrial fibrillation I48.91 Mitral regurgitation I34.0 Left ventricular hypertrophy I51.7
[2020-11-01] MEDS ORDERED: METOPROLOL TARTRATE 1 MG/ML VIAL IV PRN (14:38)
--- NOTE | 2020-11-01 16:54 | Magnetic Resonance Report ---
MRI OF THE BRAIN WITHOUT CONTRAST CLINICAL HISTORY: stroke work up COMPARISON STUDY: Head CT and CTA of the head November 01, 2020 at 5:29 AM. TECHNIQUE: Utilizing a 1.5 Renee magnet and dedicated coil, multiplanar, multiecho imaging of the bra in was performed without IV contrast. FINDINGS: Note is made of a 3 mm focus of increased signal intensity within the right posterior later al aspect of the brainstem at the pontomedullary junction. Corresponding T2 hyperintense focus is not ed. Correlation with ADC map is difficult given the small size however this favors an acute infarct. No additional foci of acute infarction are present. Ventricular system is normal. Basilar cisterns ar e patent. There are no extra-axial collections. No intracranial masses identified on this unenhanced exam. Multiple small white matter T2 hyperintense foci are noted. Calvarial signal is normal. There i s mucosal thickening with a mucous retention cyst within the left maxillary sinus. IMPRESSION: 1. 3 mm focus of signal abnormality within the right posterolateral aspect of the brainstem at the po ntomedullary junction. This favors a small acute infarct. No mass effect. No hemorrhage. 2. Multiple white matter T2 hyperintense foci likely reflect small vessel disease. ACT 112: Negative or not required by law. Electronically signed by: Andrés Padron M.D. 11/01/2020 4:53 PM
[2020-11-01 16:56] LABS: Appearance Urine Clear (Clear); Bilirubin Urine Negative (Negative); Blood Urine Negative (Negative); Color Urine Yellow; Glucose Urine UA Negative (Negative); Ketones Urine Trace (Negative); Leukocyte Esterase Urine Negative (Negative); Nitrite Urine Negative (Negative); Protein Urine Negative (Negative); Specific Gravity Urine 1.045 (1.000-1.030); Urobilinogen Urine Negative (Negative)
[2020-11-01] MEDS: FAMOTIDINE 20 MG in SYRINGE 3 ML IV SCH (17:33)
[2020-11-02 04:20] LABS: Basophils # (auto) 0.01 K/uL (0-0.2); Basophils % (auto) 0.1 %; Eosinophils # (auto) 0.06 K/uL (0-0.5); Eosinophils % (auto) 0.7 %; Hematocrit (blood only) 41.8 % (42-52); Hemoglobin 14.3 g/dL (14.0-18.0); Immature Granulocytes # (auto) 0.01 K/uL (0.00-0.02); Immature Granulocytes % (auto) 0.1 %; Lymphocytes # (auto) 1.32 K/uL (1.2-3.4); Lymphocytes % (auto) 16.3 %; Mean Corpuscular Hemoglobin 32.2 pg (25-34); Mean Corpuscular Hgb Conc 34.2 g/dL (32-36); Mean Corpuscular Volume 94.1 fL (80-100); Mean Platelet Volume 9.5 fL (7.4-10.4); Monocytes # (auto) 0.78 K/uL (0.11-0.59); Monocytes % (auto) 9.6 %; Neutrophils # (auto) 5.94 K/uL (1.4-6.5); Neutrophils % (auto) 73.2 %; Platelet Count 245 K/uL (130-400); RDW Coefficient of Variation 13.1 % (11.5-14.5); RDW Standard Deviation 45.1 fL (36.4-46.3); Red Blood Count 4.44 M/uL (4.7-6.1); White Blood Count 8.12 K/uL (4.8-10.8)
[2020-11-02 04:41] LABS: BUN Creatinine Ratio 11.1 (10-20); Blood Urea Nitrogen 13 mg/dl (7-18); Calcium 8.4 mg/dl (8.5-10.1); Carbon Dioxide 26 mmol/L (21-32); Chloride 107 mmol/L (98-107); Creatinine Clr Calc Pharmacy 70.6 ml/min; Est GFR (African American) 74.4 ml/min; Est GFR (Non-African American) 64.2 ml/min; Glucose 94 mg/dl (70-99); Potassium 3.9 mmol/L (3.5-5.1); Sodium 139 mmol/L (136-145)
[2020-11-02 04:51] LABS: Chol HDL Ratio 4; Cholesterol 194 mg/dl (0-200); HDL Cholesterol 50 mg/dl; LDL Cholesterol Calculated 127 mg/dl; Thyroid Stimulating Hormone 0.955 uIu/ml (0.300-4.500); Triglycerides 84 mg/dl (0-150); Troponin I < 0.015 ng/ml (0-0.045); VLDL Cholesterol 17 mg/dl
[2020-11-02] MEDS ORDERED: LEVOTHYROXINE SODIUM 88 MCG TABLET PO SCH (06:30)
--- NOTE | 2020-11-02 07:59 | CT Scan Report ---
HEAD CT NONCONTRAST CT DOSE: 614.27 mGy.cm HISTORY: Brainstem infarct. eval for post tpa hemorrhage TECHNIQUE: Multiaxial CT images of the head were performed without the use of intravenous contrast. A utomated exposure control was utilized for this study. A dose lowering technique was utilized adheri ng to the principles of ALARA. Comparison: Head CT 11/01/2020. Brain MRI 11/01/2020. Findings: Small retention cyst within the left maxillary sinus. The mastoid air cells are clear. Punc miranda hypodensity within the right pontomedullary junction consistent with the patient's acute infarct . There is no mass, hematoma, midline shift identified. The ventricles and sulci are within normal li mits for age. Impression: Redemonstration of the small right pontomedullary junction infarct. No intracranial hemorrhage. ACT 112: Negative or not required by law. Electronically signed by: Ned Taylor M.D. 11/02/2020 7:58 AM
[2020-11-02] MEDS ORDERED: ENOXAPARIN INJ 40 MG/0.4 ML SYR SQ SCH (09:00)
[2020-11-02] MEDS ORDERED: ASPIRIN 300 MG SUPP PR SCH (09:00)
[2020-11-02] MEDS ORDERED: LEVOTHYROXINE SODIUM 50 MCG in SYRINGE 0 ML IV SCH (09:00)
--- NOTE | 2020-11-02 09:07 | Neurology Progress Note ---
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 Does not have significant weakness or ataxia of the limbs. New diagnosis of atrial fibrillation. Agree with anticoagulation. Either Xarelto or Eliquis would be appropriate per cardiology. Continue with permissive hypertension, systolic blood pressure 140 to 160 mmHg. Loss of swallowing function is a significant issue for this patient currently. He will likely need ongoing evaluation and management with speech and swallowing therapy. Consider starting a statin. Admission and Anticipated Discharge Date Admission Date: November 01, 2020 Subjective Follow-up for stroke The patient continues to complain of profound inability to swallow, feels like he is unable to initiate the swallowing reflex. Also complains of moderate associated dysarthria. Right facial weakness unchanged. No weakness of the arms or legs. No headache, vertigo, diplopia or vision loss. Brain MRI completed yesterday revealed a 3 mm acute infarct within the right posterolateral pontomedullary junction. A follow-up CT of the head completed this morning (post TPA protocol) was negative for hemorrhage and also revealed this acute infarct. New diagnosis of atrial fibrillation. Patient has been seen by cardiology as well. Consensus is to start anticoagulation in light of objective evidence of acute stroke. Review of Systems Eyes: no blind spots and no diplopia Ear, Nose, Mouth, Throat: + dysphagia; no hearing loss Neurologic: no localized weakness, no dizziness and no headache(s) Results & Data ([facility]) Vital Signs (Past 12 Hours) Vital Signs Temp Pulse Resp BP Pulse Ox 11/02/20 07:00 36.6 C 79 19 153/80 H 96 11/02/20 06:15 36.9 C 87 18 162/102 H 94 11/02/20 05:15 36.6 C 74 22 164/89 H 95 11/02/20 04:15 36.8 C 78 16 163/96 H 93 11/02/20 03:15 36.7 C 68 18 145/90 H 96 11/02/20 02:15 36.7 C 76 18 155/90 H 94 11/02/20 01:15 36.8 C 72 18 135/83 95 11/02/20 00:15 36.7 C 72 18 138/73 95 11/01/20 23:15 36.8 C 75 18 143/69 H 95 11/01/20 22:15 36.7 C 74 18 149/79 H 95 11/01/20 21:15 36.8 C 81 16 137/74 96 Exam (Neuro) Neurologic: Oriented to:: Person, Place and Time Memory: Short Term Intact and Remote Intact Attention: Span Intact and Concentration Intact Speech Fluency: Dysarthria Speech Aphasia: negative Aphasia Fund of Knowledge: Vocabulary Cranial Nerves: Normal II, III, IV, , V, VIII, IX, X, XI and XII (Tongue protrudes to midline.); Abnorm VII (Weakness of the right facial musculature, lower greater than upper, able to close the right eyelid.) Motor Strength: Normal Lower Extremities and Normal Upper Extremities Muscle Bulk/Involuntary Movements: No Involuntary Movements Sensation: Light Touch Intact and Pain/Temperature Intact Coordination: Normal Coding Level of Care Code 13078 Subseq Hosp Care Lvl 2 Diagnoses Acute brainstem stroke I63.9
--- NOTE | 2020-11-02 09:46 | Cardiology Progress Note ---
Date of Service November 02, 2020 Assessment & Plan (1) Atrial fibrillation: He has returned to sinus rhythm. He was not aware of the arrhythmia. Unclear if he has had episodes previously, but given his presentation he would seem likely that his atrial fibrillation was involved in his embolic stroke. He does not require any rate control agents or prophylaxis for atrial fibrillation. However, he will require systemic anticoagulation indefinitely. Again, Xarelto 20 mg daily or Eliquis 5 mg twice daily would be reasonable choices. If cost is prohibitive, warfarin would be an alternative. Anticoagulation can be started at the discretion of his primary team. He will need to follow-up with a rental agent closer to home once he is discharged. (2) Mitral regurgitation: Mild on echocardiogram. Not contributing to symptoms. This can be follo wed over time. (3) Left ventricular hypertrophy: Mild. Possibly indicative of untreated hypertension. Admission and Anticipated Discharge Date Admission Date: November 01, 2020 Subjective The patient continues to have difficulty with swallowing. He had trouble even brushing his teeth today. He has not report any symptoms of palpitations, breathing trouble or chest discomfort. Review of Systems Review of Systems: Per HPI Physical Exam Physical Exam: The patient is alert and oriented. Mood and affect appeared normal. He answered all questions appropriately. HEENT: Pupils are equal and reactive to light and accommodation. The sclerae are anicteric. Neuro: Right facial droop. Some difficulty with speech. Lungs: Normal respiratory effort Cardiac: Regular rhythm. Normal rate. Pulses: The patient has palpable radial pulses bilaterally that are equal in intensity Extremities: There was no evidence of hypoperfusion. There is no cyanosis or clubbing. There is no edema. Skin: I did not appreciate any rashes on examination today. Results & Data ([facility]) Vital Signs (Past 12 Hours) Vital Signs Temp Pulse Resp BP Pulse Ox 11/02/20 07:00 36.6 C 79 19 153/80 H 96 11/02/20 06:15 36.9 C 87 18 162/102 H 94 11/02/20 05:15 36.6 C 74 22 164/89 H 95 11/02/20 04:15 36.8 C 78 16 163/96 H 93 11/02/20 03:15 36.7 C 68 18 145/90 H 96 11/02/20 02:15 36.7 C 76 18 155/90 H 94 11/02/20 01:15 36.8 C 72 18 135/83 95 11/02/20 00:15 36.7 C 72 18 138/73 95 11/01/20 23:15 36.8 C 75 18 143/69 H 95 11/01/20 22:15 36.7 C 74 18 149/79 H 95 Laboratory Results Abnormal Lab Results 11/01/20 11/01/20 11/02/20 09:45 16:40 01:03 WBC RBC Hgb Hct MCV MCH MCHC RDW Std Deviation RDW Coeff of Edmond Plt Count MPV Immature Gran % (Auto) Neut % (Auto) Lymph % (Auto) Pett[place] % (Auto) Eos % (Auto) Baso % (Auto) Neut # (Auto) Lymph # (Auto) [place] # (Auto) Eos # (Auto) Baso # (Auto) Immature Gran # (Auto) Sodium Potassium Chloride Carbon Dioxide Anion Gap BUN Creatinine Est Cr Clr Drug Dosing Est GFR ( Amer) Est GFR (Non-Af Amer) BUN/Creatinine Ratio Glucose POC Glucose 81 Calcium Troponin I Triglycerides Cholesterol LDL Cholesterol, Calc VLDL Cholesterol, Calc HDL Cholesterol Cholesterol/HDL Ratio TSH Urine Color Yellow Urine Appearance Clear Urine pH 7.0 Ur Specific [place] 1.045 H Urine Protein Negative Urine Glucose (UA) Negative Urine Ketones Trace H Urine Blood Negative Urine Nitrite Negative Urine Bilirubin Negative Urine Urobilinogen Negative Ur Leukocyte Esterase Negative Nasal Screen MRSA (PCR) Negative 11/02/20 11/02/20 11/02/20 04:10 04:10 05:46 WBC 8.12 RBC 4.44 L Hgb 14.3 Hct 41.8 L MCV 94.1 MCH 32.2 MCHC 34.2 RDW Std Deviation 45.1 RDW Coeff of Edmond 13.1 Plt Count 245 MPV 9.5 Immature Gran % (Auto) 0.1 Neut % (Auto) 73.2 Lymph % (Auto) 16.3 Pettis % (Auto) 9.6 Eos % (Auto) 0.7 Baso % (Auto) 0.1 Neut # (Auto) 5.94 Lymph # (Auto) 1.32 [place] # (Auto) 0.78 H Eos # (Auto) 0.06 Baso # (Auto) 0.01 Immature Gran # (Auto) 0.01 Sodium 139 Potassium 3.9 Chloride 107 Carbon Dioxide 26 Anion Gap 6.0 BUN 13 Creatinine 1.19 Est Cr Clr Drug Dosing 70.6 Est GFR ( Amer) 74.4 Est GFR (Non-Af Amer) 64.2 BUN/Creatinine Ratio 11.1 Glucose 94 POC Glucose 99 Calcium 8.4 L Troponin I < 0.015 Triglycerides 84 Cholesterol 194 LDL Cholesterol, Calc 127 VLDL Cholesterol, Calc 17 HDL Cholesterol 50 Cholesterol/HDL Ratio 4 TSH 0.955 Urine Color Urine Appearance Urine pH Ur Specific [place] Urine Protein Urine Glucose (UA) Urine Ketones Urine Blood Urine Nitrite Urine Bilirubin Urine Urobilinogen Ur Leukocyte Esterase Nasal Screen MRSA (PCR) Diagnostic Findings Revealed preserved LV systolic function with mild LVH and mild mitral regurgitation. Head CT did not demonstrate any Acute intracranial process CTA of the head and neck did not reveal any notable abnormalities MRI of the brain revealed a focal brainstem infarct. PG Care Time/CCT Total # of Minutes Spent Total Time Spent with Patient: Total time spent is greater than 50% in coordination of care (as documented) at patient's floor/unit and/or counseling patient: Coding Level of Care Code 64199 Subseq Hosp Care Lvl 2 Diagnoses Atrial fibrillation I48.91 Mitral regurgitation I34.0 Left ventricular hypertrophy I51.7
[2020-11-02] MEDS ORDERED: ENOXAPARIN 1 MG/KG SC SCH (10:30)
[2020-11-02] MEDS: FAMOTIDINE 20 MG in SYRINGE 3 ML IV SCH ×2 (10:37→20:54)
[2020-11-02] MEDS ORDERED: PANTOprazole 40 MG in SYRINGE 0 ML IV SCH (11:00)
[2020-11-02] MEDS: ENOXAPARIN 100 MG/1ML SYR SQ SCH ×2 (11:30→20:54)
--- NOTE | 2020-11-02 11:42 | Hospitalist Progress Note ---
Date of Service November 02, 2020 Assessment & Plan (1) Acute brainstem stroke: Patient presented with strokelike symptoms with facial droop and headache. Decision to give TPA was garnered via telestroke patiently brought in via the stroke order set for further neurological evaluation and be placed in the intensive care unit for the first 24 hours. MRI confirmed brainstem stroke Repeat CT head with no ICH, ok to transfer to PCU for continued observation SLT/PT/OT - suspect if unable to swallow tomorrow will place NG tube and consult GI for placement of g-tube. Lovenox treatment dose as below. Holding off antiplatelets per neuro recommendations as discussed with ICU team Holding off statin until able to take PO medsIV fluids while NPO (2) New onset a-fib: Lovenox treatment dose while while NPO New diagnosis rate controlled atrial fibrillation seen, no prior history of the same, ECHO with preserved EF no shunt seen and no intracardiac thrombosis seen, not on any rate controlling medicaion will add metoprolol prn, check tsh in the am, check troponin in am again. (3) GERD (gastroesophageal reflux disease): Switch esomeprazole for famotidine 20mg PO BID (4) Hypothyroidism (acquired): TSH WNL Continue IV levothyroxine while unable to take PO meds Admission and Anticipated Discharge Date Admission Date: November 01, 2020 Subjective No extremity weakness or change in sensation. Continued right facial droop. Had problems swallowing this morning. CT head @ 24 hours negative for ICH therefore started on lovenox by ICU team this morning and on discussion with neurology holding off antiplatelets at current time. Had difficulty with oral fluids even with brushing his teeth this morning. Currently back in sinus rhythm. Review of Systems Review of Systems: All systems reviewed & are unremarkable except as noted in HPI & below Physical Exam Constitutional: WD/WN, vitals as above Eyes: PERRL, conjunctivae normal, anicteric sclerae ENMT: external ear and nose normal, oropharynx normal Respiratory: normal respiratory effort, lungs clear to auscultation Cardiovascular: Rate/Rhythm: regular rate and regular rhythm Heart Sounds: no murmur Vessels: no JVD Extremities: normal capillary refill; no calf t enderness and no pedal edema Gastrointestinal (Abdomen): normal bowel sounds, soft, nontender, no hepatosplenomegaly Neurologic: moves all extremities, + focal motor deficit (facial droop, no extremity deficit) and awake; not confused Speech / Cognition: + abnormal speech (mild dysarthria); no expressive aphasia and no receptive aphasia Motor/Sensory: no tremor, no pronator drift and no sensory deficit Cranial Nerves: PERRL, EOM intact bilaterally, able to rotate head bilaterally, able to elevate shoulders bilaterally, no nystagmus and symmetric palate elevation; + abnormal facial strength (right) Psychiatric: A+Ox3, euthymic affect Results & Data Results & Data ([facility]) Vital Signs (Past 12 Hours) Vital Signs Temp Pulse Pulse Resp BP BP Pulse Ox 11/02/20 11:10 82 19 98 11/02/20 11:00 75 17 96 11/02/20 10:56 76 18 143/97 H 97 11/02/20 10:52 11/02/20 10:50 75 18 95 11/02/20 10:40 91 H 20 95 11/02/20 10:30 80 19 95 11/02/20 10:20 82 15 94 11/02/20 10:10 85 21 93 11/02/20 10:00 79 18 95 11/02/20 09:56 77 17 157/103 H 93 11/02/20 09:50 84 20 94 11/02/20 09:44 84 23 144/89 H 94 11/02/20 09:32 87 22 161/85 H 11/02/20 09:30 82 19 94 11/02/20 09:20 82 14 97 11/02/20 09:17 82 20 96 11/02/20 09:10 100 H 27 H 11/02/20 09:00 81 20 94 11/02/20 08:58 83 15 150/88 H 96 11/02/20 08:50 90 18 96 11/02/20 08:40 83 25 H 96 11/02/20 08:30 86 21 99 11/02/20 08:20 82 19 96 11/02/20 08:10 85 16 98 11/02/20 08:00 36.7 C 84 65 20 153/80 H 99 11/02/20 07:56 73 17 153/80 H 98 11/02/20 07:50 73 18 96 11/02/20 07:40 74 16 96 11/02/20 07:30 84 20 93 11/02/20 07:20 83 17 95 06/20/21 07:10 77 18 95 11/02/20 07:01 76 18 147/102 H 95 11/02/20 07:00 36.6 C 78 79 21 153/80 H 95 11/02/20 06:56 76 17 164/100 H 94 11/02/20 06:55 79 19 93 11/02/20 06:40 78 20 11/02/20 06:33 84 16 95 11/02/20 06:20 81 15 94 11/02/20 06:18 76 20 162/102 H 94 11/02/20 06:15 36.9 C 87 18 162/102 H 94 11/02/20 06:10 78 15 94 11/02/20 06:00 79 17 93 11/02/20 05:50 76 17 94 11/02/20 05:47 82 22 148/85 H 94 11/02/20 05:40 69 18 97 11/02/20 05:30 76 18 94 11/02/20 05:20 75 16 95 11/02/20 05:17 78 17 164/89 H 95 11/02/20 05:15 36.6 C 74 22 164/89 H 95 11/02/20 05:10 77 16 94 11/02/20 04:15 36.8 C 78 16 163/96 H 93 11/02/20 03:15 36.7 C 68 18 145/90 H 96 11/02/20 02:15 36.7 C 76 18 155/90 H 94 11/02/20 01:15 36.8 C 72 18 135/83 95 11/02/20 00:15 36.7 C 72 18 138/73 95 Pulse Ox 11/02/20 11:10 11/02/20 11:00 11/02/20 10:56 11/02/20 10:52 96 11/02/20 10:50 11/02/20 10:40 11/02/20 10:30 11/02/20 10:20 11/02/20 10:10 11/02/20 10:00 11/02/20 09:56 11/02/20 09:50 11/02/20 09:44 11/02/20 09:32 11/02/20 09:30 11/02/20 09:20 11/02/20 09:17 11/02/20 09:10 11/02/20 09:00 11/02/20 08:58 11/02/20 08:50 11/02/20 08:40 11/02/20 08:30 11/02/20 08:20 11/02/20 08:10 11/02/20 08:00 11/02/20 07:56 11/02/20 07:50 11/02/20 07:40 11/02/20 07:30 11/02/20 07:20 11/02/20 07:10 11/02/20 07:01 11/02/20 07:00 11/02/20 06:56 11/02/20 06:55 11/02/20 06:40 11/02/20 06:33 11/02/20 06:20 11/02/20 06:18 11/02/20 06:15 11/02/20 06:10 11/02/20 06:00 11/02/20 05:50 11/02/20 05:47 11/02/20 05:40 11/02/20 05:30 11/02/20 05:20 11/02/20 05:17 11/02/20 05:15 11/02/20 05:10 11/02/20 04:15 11/02/20 03:15 11/02/20 02:15 11/02/20 01:15 11/02/20 00:15 PG Care Time/CCT Total # of Minutes Spent Total Time Spent with Patient: Total time spent is greater than 50% in coordination of care (as documented) at patient's floor/unit and/or counseling patient: Coding Level of Care Code 19839 Subseq Hosp Care Lvl 3 Diagnoses Acute brainstem stroke I63.9 New onset a-fib I48.91 GERD (gastroesophageal reflux disease) K21.9 Hypothyroidism (acquired) E03.9
--- NOTE | 2020-11-02 12:42 | Critical Care Progress Note ---
Date of Service November 02, 2020 Assessment & Plan (1) Stroke-like symptoms: Appreciate neurology and cardiology input. MRI imaging reviewed. Patient with evidence of acute right posterior lateral pontomedullary stroke with right facial nerve palsy, dysphagia and dysarthria. He received TPA on admission. Given his atrial fibrillation, we are initiating the patient on therapeutic Lovenox. He is not able to take p.o. medications at this time. He is currently in a sinus rhythm. We will need to consider placement of an NG tube in the next 24 hours if patient unable to take an oral medications and food. Patient is stable for transfer to the floor. (2) Atrial fibrillation: (3) Urinary retention: Admission and Anticipated Discharge Date Admission Date: November 01, 2020 Subjective Patient seen and examined this morning. Continues to have trouble with swallowing. Denies any chest pain, headache, fevers or chills. Review of Systems Review of Systems: All systems reviewed & are unremarkable except as noted in HPI & below Physical Exam Constitutional: WD/WN, vitals as above Eyes: PERRL, conjunctivae normal, anicteric sclerae ENMT: external ear and nose normal, oropharynx normal Neck: normal visual inspection Respiratory: normal respiratory effort, lungs clear to auscultation Cardiovascular: RRR, no murmur, no edema Gastrointestinal (Abdomen): normal bowel sounds, soft, nontender, no hepatosplenomegaly Skin: no rashes, warm and dry Neurologic: Right facial droop. Psychiatric: A+Ox3, euthymic affect Results & Data Results & Data ([facility]) Vital Signs (Past 12 Hours) Vital Signs Temp Pulse Pulse Resp BP BP Pulse Ox 11/02/20 11:10 82 19 98 11/02/20 11:00 75 17 96 11/02/20 10:56 76 18 143/97 H 97 11/02/20 10:52 11/02/20 10:50 75 18 95 11/02/20 10:40 91 H 20 95 11/02/20 10:30 80 19 95 11/02/20 10:20 82 15 94 11/02/20 10:10 85 21 93 11/02/20 10:00 79 18 95 11/02/20 09:56 77 17 157/103 H 93 11/02/20 09:50 84 20 94 11/02/20 09:44 84 23 144/89 H 94 06/20/21 09:32 87 22 161/85 H 06/20/21 09:30 82 19 94 06/20/21 09:20 82 14 97 06/20/21 09:17 82 20 96 06/20/21 09:10 100 H 27 H 06/20/21 09:00 81 20 94 06/20/21 08:58 83 15 150/88 H 96 06/20/21 08:50 90 18 96 06/20/21 08:40 83 25 H 96 06/20/21 08:30 86 21 99 06/20/21 08:20 82 19 96 06/20/21 08:10 85 16 98 06/20/21 08:00 98.1 F 84 65 20 153/80 H 99 06/20/21 07:56 73 17 153/80 H 98 06/20/21 07:50 73 18 96 06/20/21 07:40 74 16 96 06/20/21 07:30 84 20 93 06/20/21 07:20 83 17 95 06/20/21 07:10 77 18 95 06/20/21 07:01 76 18 147/102 H 95 06/20/21 07:00 97.9 F 78 79 21 153/80 H 95 06/20/21 06:56 76 17 164/100 H 94 06/20/21 06:55 79 19 93 06/20/21 06:40 78 20 06/20/21 06:33 84 16 95 06/20/21 06:20 81 15 94 06/20/21 06:18 76 20 162/102 H 94 06/20/21 06:15 98.4 F 87 18 162/102 H 94 06/20/21 06:10 78 15 94 06/20/21 06:00 79 17 93 06/20/21 05:50 76 17 94 06/20/21 05:47 82 22 148/85 H 94 06/20/21 05:40 69 18 97 06/20/21 05:30 76 18 94 06/20/21 05:20 75 16 95 06/20/21 05:17 78 17 164/89 H 95 06/20/21 05:15 97.9 F 74 22 164/89 H 95 06/20/21 05:10 77 16 94 06/20/21 04:15 98.2 F 78 16 163/96 H 93 11/02/20 03:15 98.1 F 68 18 145/90 H 96 11/02/20 02:15 98.1 F 76 18 155/90 H 94 11/02/20 01:15 98.2 F 72 18 135/83 95 Pulse Ox 11/02/20 11:10 11/02/20 11:00 11/02/20 10:56 11/02/20 10:52 96 11/02/20 10:50 11/02/20 10:40 11/02/20 10:30 11/02/20 10:20 11/02/20 10:10 11/02/20 10:00 11/02/20 09:56 11/02/20 09:50 11/02/20 09:44 11/02/20 09:32 11/02/20 09:30 11/02/20 09:20 11/02/20 09:17 11/02/20 09:10 11/02/20 09:00 11/02/20 08:58 11/02/20 08:50 11/02/20 08:40 11/02/20 08:30 11/02/20 08:20 11/02/20 08:10 11/02/20 08:00 11/02/20 07:56 11/02/20 07:50 11/02/20 07:40 11/02/20 07:30 11/02/20 07:20 11/02/20 07:10 11/02/20 07:01 11/02/20 07:00 11/02/20 06:56 11/02/20 06:55 11/02/20 06:40 11/02/20 06:33 11/02/20 06:20 11/02/20 06:18 11/02/20 06:15 11/02/20 06:10 11/02/20 06:00 11/02/20 05:50 11/02/20 05:47 11/02/20 05:40 11/02/20 05:30 11/02/20 05:20 11/02/20 05:17 11/02/20 05:15 11/02/20 05:10 11/02/20 04:15 11/02/20 03:15 11/02/20 02:15 11/02/20 01:15 Vital signs, labs and imaging personally reviewed Coding Level of Care Code 28111 Subseq Hosp Care Lvl 2 Diagnoses Stroke-like symptoms R29.90 Atrial fibrillation I48.91 Urinary retention R33.9
[2020-11-02] MEDS: D5W AND LACTATED RINGERS 1,000 ML IV SCH ×2 (14:30→20:53)
[2020-11-03] MEDS: D5W AND LACTATED RINGERS 1,000 ML IV SCH ×2 (04:34→13:09)
[2020-11-03 06:38] LABS: Estimated Average Glucose 114 mg/dl; Hemoglobin A1C 5.6 % (4.5-5.6)
[2020-11-03 06:43] LABS: Basophils # (auto) 0.03 K/uL (0-0.2); Basophils % (auto) 0.6 %; Eosinophils # (auto) 0.13 K/uL (0-0.5); Eosinophils % (auto) 2.7 %; Hematocrit (blood only) 43.9 % (42-52); Hemoglobin 14.7 g/dL (14.0-18.0); Lymphocytes % (auto) 35.3 %; Mean Corpuscular Hemoglobin 32.3 pg (25-34); Mean Corpuscular Hgb Conc 33.5 g/dL (32-36); Mean Corpuscular Volume 96.5 fL (80-100); Mean Platelet Volume 9.7 fL (7.4-10.4); Monocytes # (auto) 0.58 K/uL (0.11-0.59); Neutrophils # (auto) 2.38 K/uL (1.4-6.5); Neutrophils % (auto) 49.4 %; Platelet Count 253 K/uL (130-400); RDW Coefficient of Variation 12.8 % (11.5-14.5); RDW Standard Deviation 45.1 fL (36.4-46.3); Red Blood Count 4.55 M/uL (4.7-6.1); White Blood Count 4.82 K/uL (4.8-10.8)
[2020-11-03 07:14] LABS: BUN Creatinine Ratio 9.3 (10-20); Calcium 8.6 mg/dl (8.5-10.1); Creatinine Clr Calc Pharmacy 65.1 ml/min; Est GFR (African American) 68.1 ml/min; Est GFR (Non-African American) 58.8 ml/min; Potassium 3.4 mmol/L (3.5-5.1)
[2020-11-03] MEDS: ENOXAPARIN 100 MG/1ML SYR SQ SCH (07:48)
[2020-11-03] MEDS: FAMOTIDINE 20 MG in SYRINGE 3 ML IV SCH (07:51)
--- NOTE | 2020-11-03 12:30 | Hospitalist Progress Note ---
Date of Service November 03, 2020 Assessment & Plan (1) Acute brainstem stroke: Patient presented with strokelike symptoms with facial droop and headache. Decision to give TPA was garnered via telestroke patiently brought in via the stroke order set for further neurological evaluation and be placed in the intensive care unit for the first 24 hours. MRI confirmed brainstem stroke Repeat CT head with no ICH Symptoms stable but not significantly improving - see below for oropharyngeal dysphagia. Allow permissive hypertension 140-160mmHg Holding off antiplatelets per neuro recommendations as discussed with ICU team - favoring anticoagulation after tPA. Start atorvastatin via NG (2) Oropharyngeal dysphagia: Secondary to brainstem stroke. Appreciate SLT assessment. Place corsafe, Start tube feeds after confirmation of placement of this. Consult GI for PEG tube placement (3) New onset a-fib: Lovenox treatment dose while while NPO -> switch to Eliquis once Corsafe placed TSH WNL TTE - unremarkable Remains in NSR - no need for any rate/rhythm controlling medication at this time. (4) GERD (gastroesophageal reflux disease): Switched esomeprazole for famotidine 20mg PO BID (5) Hypothyroidism (acquired): TSH WNL Switch to his usual levothyroxine dosing via corsafe. Admission and Anticipated Discharge Date Admission Date: November 01, 2020 Subjective No extremity weakness or change in sensation. Continued right facial droop. No significant improvement in swallowing with SLT today. Remains in NSR on telemetry. Review of Systems Review of Systems: All systems reviewed & are unremarkable except as noted in HPI & below Physical Exam Constitutional: WD/WN, vitals as above Eyes: + anicteric sclerae; normal pupil size ENMT: external ear and nose normal, oropharynx normal Respiratory: normal respiratory effort, lungs clear to auscultation Cardiovascular: Rate/Rhythm: regular rate and regular rhythm Heart Sounds: no murmur Vessels: no JVD Extremities: normal capillary refill; no calf tenderness and no pedal edema Gastrointestinal (Abdomen): normal bowel sounds, soft, nontender, no hepatosplenomegaly Neurologic: moves all extremities, + focal motor deficit (facial droop, no extremity deficit) and awake; not confused Speech / Cognition: normal speech (mild dysarthria), no expressive aphasia and no receptive aphasia Motor/Sensory: no tremor and no pronator drift Cranial Nerves: + abnormal facial strength (right) Psychiatric: A+Ox3, euthymic affect Results & Data Results & Data ([facility]) Vital Signs (Past 12 Hours) Vital Signs Temp Pulse Pulse Resp BP BP BP 11/03/20 11:06 36.4 C L 74 18 155/97 H 11/03/20 07:09 36.6 C 75 19 153/85 H 11/03/20 06:00 36.7 C 68 18 148/79 H 11/03/20 00:59 36.5 C 62 18 154/83 H Pulse Ox 11/03/20 11:06 96 11/03/20 07:09 92 11/03/20 06:00 95 11/03/20 00:59 95 PG Care Time/CCT Total # of Minutes Spent Total Time Spent with Patient: Total time spent is greater than 50% in coordination of care (as documented) at patient's floor/unit and/or counseling patient: Coding Level of Care Code 00058 Subseq Hosp Care Lvl 2 Diagnoses Acute brainstem stroke I63.9 Oropharyngeal dysphagia R13.12 New onset a-fib I48.91 GERD (gastroesophageal reflux disease) K21.9 Hypothyroidism (acquired) E03.9
--- NOTE | 2020-11-03 14:53 | XRay Report ---
KUB HISTORY: Status post placement of an enteric tube NG placement COMPARISON: None. FINDINGS: Pattern is nonobstructive. Mild to moderate fecal retention of the right hemicolon. An enteric tube i s present with distal tip projected over the mid stomach. The lateral left abdomen is excluded from t he [id number]. No renal calculi. No ureteral calculi. No pneumoperitoneum or pneumatosis. No frac ture. IMPRESSION: 1. Nonobstructive bowel gas pattern. 2. Distal tip of enteric tube projects over the mid stomach. ACT 112: Negative or not required by law. The above report was generated using voice recognition software. It may contain grammatical, syntax o r spelling errors. Electronically signed by: Donny Ho M.D. 11/03/2020 2:51 PM
[2020-11-03] MEDS: FIBERSOURCE HN 1.2 CAL 1000 ML BAG NG SCH (15:17)
[2020-11-03] MEDS: TUBE FEEDING WATER FLUSH NG SCH ×3 (15:17→23:07)
[2020-11-03] MEDS: FAMOTIDINE 20 MG TAB PO SCH (23:06)
[2020-11-03] MEDS: ATORVASTATIN 40 MG TAB NG SCH (23:07)
[2020-11-03] MEDS: APIXABAN 5 MG TABLET PO SCH (23:07)
[2020-11-04] MEDS: TUBE FEEDING WATER FLUSH NG SCH ×6 (04:41→22:18)
[2020-11-04 06:52] LABS: Basophils # (auto) 0.02 K/uL (0-0.2); Basophils % (auto) 0.4 %; Eosinophils # (auto) 0.17 K/uL (0-0.5); Hematocrit (blood only) 45.7 % (42-52); Hemoglobin 15.7 g/dL (14.0-18.0); Lymphocytes # (auto) 1.49 K/uL (1.2-3.4); Lymphocytes % (auto) 26.6 %; Mean Corpuscular Hemoglobin 32.8 pg (25-34); Mean Corpuscular Hgb Conc 34.4 g/dL (32-36); Mean Corpuscular Volume 95.6 fL (80-100); Mean Platelet Volume 9.7 fL (7.4-10.4); Monocytes # (auto) 0.62 K/uL (0.11-0.59); Monocytes % (auto) 11.1 %; Neutrophils # (auto) 3.31 K/uL (1.4-6.5); Neutrophils % (auto) 58.9 %; Platelet Count 276 K/uL (130-400); RDW Coefficient of Variation 12.7 % (11.5-14.5); RDW Standard Deviation 44.1 fL (36.4-46.3); Red Blood Count 4.78 M/uL (4.7-6.1); White Blood Count 5.61 K/uL (4.8-10.8)
[2020-11-04 07:39] LABS: Albumin Level 3.3 gm/dl (3.4-5.0); BUN Creatinine Ratio 9.4 (10-20); Calcium 8.9 mg/dl (8.5-10.1); Creatinine Clr Calc Pharmacy 73.1 ml/min; Est GFR (African American) 78.3 ml/min; Est GFR (Non-African American) 67.6 ml/min; Magnesium 2.3 mg/dl (1.8-2.4); Potassium 3.5 mmol/L (3.5-5.1)
[2020-11-04 07:42] LABS: Albumin Globulin Ratio 0.9 (0.9-2); Bilirubin,Total 1.6 mg/dl (0.2-1); Globulin 3.8 gm/dl (2.5-4.0); Phosphorus 2.5 mg/dl (2.5-4.9); Total Protein 7.1 gm/dl (6.4-8.2)
[2020-11-04] MEDS: FAMOTIDINE 20 MG TAB PO SCH ×2 (08:03→20:04)
[2020-11-04] MEDS: APIXABAN 5 MG TABLET PO SCH (08:03)
--- NOTE | 2020-11-04 10:16 | Gastrointestinal Consultation ---
Date of Consultation November 04, 2020 Assessment & Plan (1) Oropharyngeal dysphagia: (2) Acute brainstem stroke: Patient is a pleasant 65 y.o. male with newly diagnosed atrial fibrillation and associated acute brainstem stroke with new onset of severe oropharyngeal dysphagia. -Patient has been started on Eliquis and this medication would need to be held 2 days prior PEG placement due to risks of bleeding. -Continue NG tube feeds for now. -Consider [employer] evaluation. -Can discuss surgical tube placement if clinically indicated. Thank you for allowing us to participate in the care of this patient. If you have any questions or concerns, do not hesitate to contact us at [phone] or [phone]. Supervising Physician Co-Signing Physician Notes I personally evaluated the patient and agree with the findings as documented by FLAKITA Still Exam: abd: soft, nt, nd currently on eliquis. would need to be held for 48 hours from a GI perspective to consider a PEG tube placement. Can consider surgical consultation for feeding tube as well. History of Present Illness Reason for Consultation: PEG tube Requesting Physician: Dr. Esparza Attending Physician: Sridhar Esparza MD History of Present Illness Patient is a 65 y.o. male with a history of prior tobacco use admitted with right-sided facial droop and dizziness. He was stroke alert on admission and TPA was administered. Neurology is following the patient for suspected brain stem stroke. GI has been consulted due to patient's new onset of severe oropharyngeal dysphagia and insertion of PEG. He states he is unable to swallow anything, even his own saliva. NG has been inserted for nutritional support. Currently, the patient has had NG clamped. Started on Eliquis last evening due to A Fib. Allergies Allergy/AdvReac Type Severity Reaction Status Date / Time No Known Allergies Allergy Verified 11/01/20 06:00 Home Medications Medication Instructions Recorded Confirmed Type esomeprazole magnesium [Nexium] 20 mg PO DAILY 11/01/20 11/01/20 History levothyroxine 88 mcg PO DAILY 11/01/20 11/01/20 History Patient History Medical History Urinary retention Social History Smoking Status: Never smoker Hx Alcohol Use: No Hx Substance Use: No Preferred Language: Frisian Communication Ability: Effective Beliefs That Will Affect Care: None Current Living Situation: Spouse Feels Safe at Home: Yes Safety Concerns: Feels Safe At This Time Assistive Devices: Glasses Review of Systems Review of Systems: All systems reviewed & are unremarkable except as noted in HPI & below Physical Exam Constitutional: WD/WN, vitals as above well developed and well nourished Eyes: EOM intact bilaterally Neck: normal visual inspection Respiratory: normal respiratory effort Auscultation: lungs clear to auscultation bilaterally Cardiovascular: Rate/Rhythm: regular rate rhythm irregular. Gastrointestinal (Abdomen): normal bowel sounds, soft, nontender, no hepa tosplenomegaly Musculoskeletal: Extremities: extremities normal to inspection Psychiatric: A+Ox3, euthymic affect Results & Data ([facility]) Vital Signs (Past 12 Hours) Vital Signs Temp Pulse Pulse Resp BP Pulse Ox 11/04/20 08:00 80 11/04/20 07:22 36.4 C L 78 17 154/91 H 98 11/04/20 03:32 36.5 C 78 18 150/79 H 95 11/03/20 23:46 36.6 C 66 18 148/81 H 95 Laboratory Results Abnormal lab results 11/04/20 11/04/20 Range/Units 06:28 06:28 [place] # (Auto) 0.62 H (0.11-0.59) K/uL BUN/Creatinine Ratio 9.4 L (10-20) Total Bilirubin 1.6 H (0.2-1) mg/dl Albumin 3.3 L (3.4-5.0) gm/dl PG Care Time/CCT Total # of Minutes Spent Total Time Spent with Patient: Total time spent is greater than 50% in coordination of care (as documented) at patient's floor/unit and/or counseling patient: Coding Level of Care Code 50610 Inpt Consult Level 4 Diagnoses Oropharyngeal dysphagia R13.12 Acute brainstem stroke I63.9
--- NOTE | 2020-11-04 19:21 | Hospitalist Progress Note ---
Date of Service November 04, 2020 Assessment & Plan (1) Acute brainstem stroke: Patient presented with strokelike symptoms with facial droop and headache. Decision to give TPA was garnered via telestroke patiently brought in via the stroke order set for further neurological evaluation and be placed in the intensive care unit for the first 24 hours. MRI confirmed brainstem stroke Repeat CT head with no ICH Symptoms stable but not significantly improving - see below for oropharyngeal dysphagia. Allow permissive hypertension 140-160mmHg Holding off antiplatelets per neuro recommendations as discussed with ICU team - favoring anticoagulation after tPA. On hold for PEG tube /Tue. Start atorvastatin via Corsafe (2) Oropharyngeal dysphagia: Secondary to brainstem stroke. Appreciate SLT assessment. Place corsafe, Started tube feeds 11/03. Appreciate GI consult for PEG placement - holding Eliquis, planned for /Tue (3) New onset a-fib: Paroxysmal Anticoagulation on hold as above for PEG placement TSH WNL TTE - unremarkable Remains in NSR - no need for any rate/rhythm controlling medication at this time. (4) GERD (gastroesophageal reflux disease): Switched esomeprazole for famotidine 20mg PO BID (5) Hypothyroidism (acquired): TSH WNL Continue usual levothyroxine dosing. Admission and Anticipated Discharge Date Admission Date: November 01, 2020 Subjective No acute events overnight. No improvement in his swallowing ability. Successfully started on tube feeds yesterday. Discussed with Dr Mcdonald and patient has to be off Eliquis for 48 hours for PEG tube insertion ?/ ay. Discussed with Dr Dash and ok to come off Eliquis at this time. Using suction catheter well for secretions. No shortness of breath, hypoxia, chest pain or coughing. Review of Systems Review of Systems: All systems reviewed & are unremarkable except as noted in HPI & below Physical Exam Constitutional: WD/WN, vitals as above Eyes: + anicteric sclerae; normal pupil size ENMT: external ear and nose normal, oropharynx normal Respiratory: normal respiratory effort, lungs clear to auscultation Cardiovascular: Rate/Rhythm: regular rate and regular rhythm Heart Sounds: no murmur Extremities: normal capillary refill; no calf tenderness and no pedal edema Gastrointestinal (Abdomen): normal bowel sounds, soft, nontender, no hepatosplenomegaly Neurologic: moves all extremities, + focal motor deficit (facial droop, no extremity deficit) and awake; not confused Speech / Cognition: normal speech (mild dysarthria), no expressive aphasia and no receptive aphasia Cranial Nerves: + abnormal facial strength (right) Psychiatric: A+Ox3, euthymic affect Results & Data Results & Data ([facility]) Vital Signs (Past 12 Hours) Vital Signs Temp Pulse Pulse Pulse Resp BP Pulse Ox 11/04/20 18:59 36.4 C L 81 16 146/87 H 94 11/04/20 15:20 36.3 C L 86 16 145/92 H 94 11/04/20 15:06 102 H 11/04/20 11:21 36.5 C 82 17 143/95 H 96 11/04/20 08:00 80 11/04/20 07:22 36.4 C L 78 17 154/91 H 98 PG Care Time/CCT Total # of Minutes Spent Total Time Spent with Patient: Total time spent is greater than 50% in coordination of care (as documented) at patient's floor/unit and/or counseling patient: Coding Level of Care Code 03666 Subseq Hosp Care Lvl 2 Diagnoses Acute brainstem stroke I63.9 Oropharyngeal dysphagia R13.12 New onset a-fib I48.91 GERD (gastroesophageal reflux disease) K21.9 Hypothyroidism (acquired) E03.9
[2020-11-04] MEDS: ATORVASTATIN 40 MG TAB NG SCH (20:04)
[2020-11-05] MEDS: FIBERSOURCE HN 1.2 CAL 1000 ML BAG NG SCH (00:20)
[2020-11-05] MEDS: TUBE FEEDING WATER FLUSH NG SCH ×6 (01:30→21:10)
[2020-11-05] MEDS: LEVOTHYROXINE SODIUM 88 MCG TABLET NG SCH (06:00)
[2020-11-05] MEDS: FAMOTIDINE 20 MG TAB PO SCH ×2 (07:52→20:16)
--- NOTE | 2020-11-05 09:40 | Communication Note ---
Date of Service: November 05, 2020 Eliquis was held yesterday. Plan for PEG placement Tuesday. May continue NG tube feeds for now.
[2020-11-05] MEDS: ATORVASTATIN 40 MG TAB NG SCH (20:16)
[2020-11-06] MEDS: TUBE FEEDING WATER FLUSH NG SCH ×6 (03:22→21:15)
[2020-11-06] MEDS: LEVOTHYROXINE SODIUM 88 MCG TABLET NG SCH (05:41)
[2020-11-06] MEDS: FAMOTIDINE 20 MG TAB PO SCH ×2 (08:18→21:16)
--- NOTE | 2020-11-06 10:05 | Gastroenterology Progress Note ---
Date of Service November 06, 2020 Assessment & Plan (1) Oropharyngeal dysphagia: (2) Acute brainstem stroke: Patient is a pleasant 65 y.o. male with newly diagnosed atrial fibrillation and associated acute brainstem stroke with new onset of severe oropharyngeal dysphagia. -Hold tube feeds post midnight. -EGD/PEG placement tomorrow with Dr. Garvey. -2 g Ancef to be given IV 1 hour prior to procedure. -Continue supportive care. Thank you for allowing us to participate in the care of this patient. If you have any questions or concerns, do not hesitate to contact us at [phone] or [phone]. Admission and Anticipated Discharge Date Admission Date: November 01, 2020 Subjective Patient with persistent, severe oropharyngeal dysphagia. With NG for nutrition. No GI complaints. Review of Systems Review of Systems: All systems reviewed & are unremarkable except as noted in HPI & below Physical Exam Constitutional: WD/WN, vitals as above well developed and well nourished Respiratory: normal respiratory effort, lungs clear to auscultation Cardiovascular: Rate/Rhythm: regular rate and regular rhythm Results & Data Results & Data ([facility]) Vital Signs (Past 12 Hours) Vital Signs Temp Pulse Pulse Resp BP Pulse Ox 11/06/20 07:39 36.5 C 80 18 118/78 97 11/06/20 03:55 36.6 C 93 H 18 114/73 96 11/05/20 23:14 36.5 C 72 16 108/69 95 11/05/20 22:20 72 PG Care Time/CCT Total # of Minutes Spent Total Time Spent with Patient: Total time spent is greater than 50% in coordination of care (as documented) at patient's floor/unit and/or counseling patient: Coding Level of Care Code 79635 Subseq Hosp Care Lvl 3 Diagnoses Oropharyngeal dysphagia R13.12 Acute brainstem stroke I63.9
--- NOTE | 2020-11-06 10:58 | Hospitalist Progress Note ---
Date of Service November 06, 2020 Assessment & Plan (1) Acute brainstem stroke: Patient presented with strokelike symptoms with facial droop and headache. Decision to give TPA was garnered via telestroke patiently brought in via the stroke order set for further neurological evaluation and be placed in the intensive care unit for the first 24 hours. MRI confirmed brainstem stroke Repeat CT head with no ICH Symptoms stable but not significantly improving - see below for oropharyngeal dysphagia. Allow permissive hypertension 140-160mmHg Holding off antiplatelets per neuro recommendations as discussed with ICU team - favoring anticoagulation after tPA. On hold for PEG tube Fri. Start atorvastatin via Corsafe no new neuro deficits, ambulating in [place] only issue is oropharyngeal dysphagia (2) Oropharyngeal dysphagia: Secondary to brainstem stroke. Appreciate SLT assessment. Place corsafe, Started tube feeds 11/03. Appreciate GI consult for PEG placement - holding Eliquis, planned for Fri (3) New onset a-fib: Paroxysmal Anticoagulation on hold as above for PEG placement TSH WNL TTE - unremarkable Remains in NSR - no need for any rate/rhythm controlling medication at this time. (4) GERD (gastroesophageal reflux disease): Switched esomeprazole for famotidine 20mg PO BID (5) Hypothyroidism (acquired): TSH WNL Continue usual levothyroxine dosing. Admission and Anticipated Discharge Date Admission Date: November 01, 2020 Subjective patient feels well, ambulating in the hallway tolerating tube feeds plan for EGD and PEG tomorrow with EGD will need to start on tube feeds, CM working on placement back in [place] area reviewed chart, reviewed labs Review of Systems Review of Systems: All systems reviewed & are unremarkable except as noted in Subjective Physical Exam Constitutional: WD/WN, vitals as above Neck: trachea midline, no thyromegaly Respiratory: normal respiratory effort, lungs clear to auscultation Cardiovascular: RRR, no murmur, no edema Gastrointestinal (Abdomen): normal bowel sounds, soft, nontender, no hepatosplenomegaly Musculoskeletal: no cyanosis or clubbing, extremities motor strength 5/5 Skin: no rashes, warm and dry Neurologic: patellar DTR's 2+ bilat, sensation intact and PERRL, EOMI, accom modation nl, no face palsy, no dysarthria Psychiatric: A+Ox3, euthymic affect Lymphatic: no cervical or axillary lymphadenopathy Results & Data Results & Data ([facility]) Vital Signs (Past 12 Hours) Vital Signs Temp Pulse Resp BP Pulse Ox 11/06/20 07:39 36.5 C 80 18 118/78 97 11/06/20 03:55 36.6 C 93 H 18 114/73 96 11/05/20 23:14 36.5 C 72 16 108/69 95 Medications Administered Current Inpatient Medications Apixaban (Apixaban 5 Mg Tablet) 5 mg PO BID [facility] Stop: 12/03/20 20:59 Last Admin: 11/04/20 08:03 Dose: 5 mg Documented by: Atorvastatin Calcium (Atorvastatin 40 Mg Tab) 40 mg NG QPM [facility] Stop: 12/03/20 20:59 Last Admin: 11/05/20 20:16 Dose: 40 mg Documented by: Enteral Nutritional Formula (Fibersource Hn 1.2 Baljeet 1000 Ml Bag) 1,000 ml NG UD [facility]; Protocol Stop: 12/03/20 13:29 Last Admin: 11/05/20 00:20 Dose: 1,000 ml Documented by: Famotidine (Famotidine 20 Mg Tab) 20 mg PO BID [facility] Stop: 12/03/20 20:59 Last Admin: 11/06/20 08:18 Dose: 20 mg Documented by: Levothyroxine Sodium (Levothyroxine Sodium 88 Mcg Tablet) 88 mcg NG DAILYBB [facility] Stop: 12/05/20 06:29 Last Admin: 11/06/20 05:41 Dose: 88 mcg Documented by: Metoprolol Tartrate (Metoprolol Tartrate 1 Mg/Ml Vial) 5 mg IV Q4 PRN PRN Reason: sbp> 185, dbp >95, HR >120 Stop: 12/01/20 14:37 Miscellaneous Information (Pharmacist Discharge Med Rec Consult) 1 ea N/A UD PRN PRN Reason: Consult Stop: 12/01/20 07:11 Sterile Water (Tube Feeding Water Flush) 150 ml NG Q4H [facility] Stop: 12/03/20 13:29 Last Admin: 11/06/20 09:18 Dose: 150 ml Documented by: PG Care Time/CCT Total # of Minutes Spent Total Time Spent with Patient: Total time spent is greater than 50% in coordination of care (as documented) at patient's floor/unit and/or counseling patient: Coding Level of Care Code 39550 Subseq Hosp Care Lvl 2 Diagnoses Acute brainstem stroke I63.9 Oropharyngeal dysphagia R13.12 New onset a-fib I48.91 GERD (gastroesophageal reflux disease) K21.9 Hypothyroidism (acquired) E03.9
[2020-11-06] MEDS: ATORVASTATIN 40 MG TAB NG SCH (21:16)
[2020-11-07] MEDS: TUBE FEEDING WATER FLUSH NG SCH ×6 (04:01→21:31)
[2020-11-07] MEDS: LEVOTHYROXINE SODIUM 88 MCG TABLET NG SCH (07:18)
[2020-11-07] MEDS: FAMOTIDINE 20 MG TAB PO SCH ×3 (07:19→20:29)
--- NOTE | 2020-11-07 10:28 | History & Physical Bridge Note ---
Date of Service November 07, 2020 History & Physical Bridge Note I have examined the patient, reviewed the History & Physical and in the interval since the performance of the History & Physical I have noted the following changes of clinical significance: NG clamped post midnight. No complaints. PE: A&Ox3. RRR. Lungs CTA bilaterally. Abdomen soft, nontender, normal bowel sounds. A/P: Brainstem CVA with persistent odynophagia. -NPO for now. -Proceed with EGD with PEG placement today. -Further recommendations pending results of testing. Supervising Physician Co-Signing Physician Notes Agree with FLAKITA Still as above Abd: Soft, NT, ND, +BS Continue current therapy Proceed with EGD with PEG tube placement.
--- NOTE | 2020-11-07 11:19 | Anesthesiology Consultation ---
Date of Service November 07, 2020 The patient is a truck supervisor. He woke at 0300 on 11/01/20 became nauseous and noted a right facial droop. He came to the ER and was diagnosed with a brainstem stroke and afib. He was given TPA. His only residual symptom is oropharyngeal dysphagia. Assessment & Plan (1) Encounter for pre-operative examination: Chart Review Chart Review: Acceptable Risk for Surgery and Patient NOT seen in Pre Admission Testing Consults Requested none History Surgery Operation Date: 11/07/20 16:30 Proposed Procedures p Esophagogastroduodenoscopy With Gastric Tube PlacementDr Guru - Jose J Bernal Case, DO Height/Weight Height: 5 ft 9 in Weight: 87 kg Allergies Allergy/AdvReac Type Severity Reaction Status Date / Time No Known Allergies Allergy Verified 11/01/20 06:00 Medications Home Medications Medication Instructions Recorded Confirmed Last Taken esomeprazole magnesium [Nexium] 20 mg PO DAILY 11/01/20 11/01/20 10/31/20 levothyroxine 88 mcg PO DAILY 11/01/20 11/01/20 10/31/20 Active Medications Generic Name Dose Route Start Last Admin Trade Name Freq PRN Reason Stop Dose Admin Apixaban 5 mg 11/03/20 21:00 11/04/20 08:03 Apixaban 5 Mg Tablet PO 12/03/20 20:59 5 mg BID RIMMA Administration Atorvastatin Calcium 40 mg 11/03/20 21:00 11/06/20 21:16 Atorvastatin 40 Mg Tab NG 12/03/20 20:59 40 mg QPM RIMMA Administration Enteral Nutritional Formula 1,000 ml 11/03/20 13:30 11/05/20 00:20 Fibersource Hn 1.2 Baljeet 1000 Ml Bag NG 12/03/20 13:29 1,000 ml UD RIMMA Administration Protocol Famotidine 20 mg 11/03/20 21:00 11/07/20 07:19 Famotidine 20 Mg Tab PO 12/03/20 20:59 Not Given BID RIMMA Levothyroxine Sodium 88 mcg 11/05/20 06:30 11/07/20 07:18 Levothyroxine Sodium 88 Mcg Tablet NG 12/05/20 06:29 Not Given DAILYBB RIMMA Sterile Water 150 ml 11/03/20 13:30 11/07/20 07:19 Tube Feeding Water Flush NG 12/03/20 13:29 Not Given Q4H [facility] Past Medical History Medical History Atrial fibrillation GERD (gastroesophageal reflux disease) Hypothyroidism (acquired) Left ventricular hypertrophy Mitral regurgitation Oropharyngeal dysphagia Stroke 11/01/20 Urinary retention Social History Smoking Status: Never smoker Hx Alcohol Use: No Hx Substance Use: No substance use type: does not use Physical Exam Vital Signs Last Vital Signs Temp 36.5 C 11/07/20 08:13 Pulse 84 11/07/20 08:13 Resp 16 11/07/20 08:13 BP 89/58 L 11/07/20 08:13 Pulse Ox 94 11/07/20 08:13 Testing Laboratory Results 11/04/20 06:28 11/04/20 06:28 PT 10.2 Seconds (9.0-12.0) 11/01/20 05:32 INR 1.0 (0.9-1.1) 11/01/20 05:32 APTT 22.5 Seconds (21.0-31.0) 11/01/20 05:32 Hemoglobin A1c 5.6 % (4.5-5.6) 11/02/20 04:10 Urine Color Yellow 11/01/20 16:40 Urine Appearance Clear (Clear) 11/01/20 16:40 Urine pH 7.0 (4.5-7.5) 11/01/20 16:40 Ur Specific [place] 1.045 (1.000-1.030) H 11/01/20 16:40 Urine Protein Negative (Negative) 11/01/20 16:40 Urine Glucose (UA) Negative (Negative) 11/01/20 16:40 Urine Ketones Trace (Negative) H 11/01/20 16:40 Urine Nitrite Negative (Negative) 11/01/20 16:40 Ur Leukocyte Esterase Negative (Negative) 11/01/20 16:40 Blood Type Cancelled 11/01/20 05:32 Antibody Screen Cancelled 11/01/20 05:32 Electrocardiogram Date: 11/01/20 Findings: + AFIB @ (77) Echocardiogram Date: 11/01/20 EF: 60-65 Valvular Disease: + MR (mild) Other Testing HEAD CT NONCONTRAST CT DOSE: 614.27 mGy.cm HISTORY: Brainstem infarct. eval for post tpa hemorrhage TECHNIQUE: Multiaxial CT images of the head were performed without the use of intravenous contrast. Automated exposure control was utilized for this study. A dose lowering technique was utilized adhering to the principles of ALARA. Comparison: Head CT 11/01/2020. Brain MRI 11/01/2020. Findings: Small retention cyst within the left maxillary sinus. The mastoid air cells are clear. Punctate hypodensity within the right pontomedullary junction consistent with the patient's acute infarct. There is no mass, hematoma, midline shift identified. The ventricles and sulci are within normal limits for age. Impression: Redemonstration of the small right pontomedullary junction infarct. No intracranial hemorrhage. ACT 112: Negative or not required by law. Electronically signed by: Ned Taylor M.D. 11/02/2020 7:58 AM Dictated: 11/02/20 0754Transcribed: 11/02/20 0754 MRI OF THE BRAIN WITHOUT CONTRAST CLINICAL HISTORY: stroke work up COMPARISON STUDY: Head CT and CTA of the head November 01, 2020 at 5:29 AM. TECHNIQUE: Utilizing a 1.5 Renee magnet and dedicated coil, multiplanar, multiec ho imaging of the brain was performed without IV contrast. FINDINGS: Note is made of a 3 mm focus of increased signal intensity within the right posterior lateral aspect of the brainstem at the pontomedullary junction. Corresponding T2 hyperintense focus is noted. Correlation with ADC map is diffic ult given the small size however this favors an acute infarct. No additional foci of acute infarction are present. Ventricular system is normal. Basilar cisterns are patent. There are no extra-axial collections. No intracranial masses identified on this unenhanced exam. Multiple small white matter T2 hyperintense foci are noted. Calvarial signal is normal. There is mucosal thickening with a mucous retention cyst within the left maxillary sinus. IMPRESSION: 1. 3 mm focus of signal abnormality within the right posterolateral aspect of the brainstem at the pontomedullary junction. This favors a small acute infarct. No mass effect. No hemorrhage. 2. Multiple white matter T2 hyperintense foci likely reflect small vessel disease. ACT 112: Negative or not required by law. Electronically signed by: Andrés Padron M.D. 11/01/2020 4:53 PM Dictated: 11/01/20 1645Transcribed: 11/01/20 164
[2020-11-07] MEDS ORDERED: ceFAZolin 2000MG 2,000 MG/15 ML SYR IV SCH (12:30)
--- NOTE | 2020-11-07 13:08 | GI REPORT ---
Patient Name: Jhonathan Bey Procedure Date: 11/07/2020 12:19 PM Date of : 1955 Admit Type: Inpatient Age: 65 Gender: Male Attending MD: Jose J Garvey DO Procedure: Upper GI endoscopy Providers: Jose J Garvey DO Referring MD: Referred Self Indications: Place PEG because patient is unable to eat due to stroke (CVA) Medicines: Monitored Anesthesia Care Complications: No immediate complications. Estimated Blood Loss: Estimated blood loss: none. Procedure: Pre-Anesthesia Assessment: - Prior to the procedure, a History and Physical was performed, and patient medications and allergies were reviewed. The patient's tolerance of previous anesthesia was also reviewed. The risks and benefits of the procedure and the sedation options and risks were discussed with the patient. All questions were answered, and informed consent was obtained. Prior Anticoagulants: The patient has taken Eliquis (apixaban), last dose was 3 days prior to procedure. ASA Grade Assessment: IV - A patient with severe systemic disease that is a constant threat to life. After reviewing the risks and benefits, the patient was deemed in satisfactory condition to undergo the procedure. After obtaining informed consent, the endoscope was passed under direct vision. Throughout the procedure, the patient's blood pressure, pulse, and oxygen saturations were monitored continuously. The Endoscope was introduced through the mouth, and advanced to the second part of duodenum. The upper GI endoscopy was accomplished without difficulty. The patient tolerated the procedure well. Findings: The esophagus was normal. The entire examined stomach was normal. Placement of an externally removable PEG with no T-fasteners was successfully completed. The external bumper was at the 4.0 cm marking on the tube. The examined duodenum was normal. Impression: - Normal esophagus. - Normal stomach. - Normal examined duodenum. - An externally removable PEG placement was successfully completed. - No specimens collected. Recommendation: - [facility]. - Continue present medications. - Please follow the post-PEG recommendations including: Nutrition consult for formula and volume. - Please follow the post-PEG recommendations including: start using PEG today. Jose J Garvey DO 11/07/2020 1:07:51 PM This report has been signed electronically. Note Initiated On: 11/07/2020 12:19 PM Number of Addenda: 0 I attest to the content of the Intraoperative Record and orders documented therein, exceptions below {[id number]}
--- NOTE | 2020-11-07 13:26 | Anesthesiology Progress Note ---
Date of Service November 07, 2020 Anesthesia Post Procedure Vital Signs Vital Signs: Temp Pulse Pulse Pulse Resp BP BP 11/07/20 13:10 20 L 72 87 20 125/87 11/07/20 12:55 20 L 78 87 20 131/85 11/07/20 11:27 36.6 C 20 L 87 87 20 118/80 11/07/20 08:13 36.5 C 84 16 89/58 L 11/07/20 00:38 36.4 C L 79 20 108/73 11/06/20 19:32 36.6 C 79 18 116/72 Pulse Ox 11/07/20 13:10 95 11/07/20 12:55 95 11/07/20 11:27 92 11/07/20 08:13 94 11/07/20 00:38 92 11/06/20 19:32 93 Transfer of Care Handoff Completed per policy Notes Mental Status: alert / awake / arousable Patient Amnestic to Procedure: Yes Nausea / Vomiting: adequately controlled Pain: adequately controlled Airway Patency, RR, SpO2: stable & adequate BP & HR: stable & adequate Hydration State: stable & adequate Anesthetic Complications: no major complications apparent and Pt Satisfied with anesthetic care
[2020-11-07] MEDS ORDERED: ENDOSCOPIC MARKER 5 ML SYR TOP ONE (14:10)
[2020-11-07] MEDS ORDERED: LIDOCAINE 2% 2 ML VIAL/AMP(20MG/ML) INFIL ONE (14:10)
[2020-11-07] MEDS ORDERED: fentaNYL citrate 100 MCG/2 ML VIAL ONE (14:10)
[2020-11-07] MEDS ORDERED: PROPOFOL IV EMULSION 10 MG/ML 20 ML VIAL IV ONE (14:10)
--- NOTE | 2020-11-07 15:39 | Hospitalist Progress Note ---
Date of Service November 07, 2020 Assessment & Plan (1) Acute brainstem stroke: Patient presented with strokelike symptoms with facial droop and headache. Decision to give TPA was garnered via telestroke patiently brought in via the stroke order set for further neurological evaluation and be placed in the intensive care unit for the first 24 hours. MRI confirmed brainstem stroke Repeat CT head with no ICH Symptoms stable but not significantly improving - see below for oropharyngeal dysphagia. Allow permissive hypertension 140-160mmHg Holding off antiplatelets per neuro recommendations as discussed with ICU team - favoring anticoagulation after tPA. resume Eliquis via PEG Start atorvastatin via Corsafe no new neuro deficits, ambulating in horner only issue is oropharyngeal dysphagia (2) Oropharyngeal dysphagia: Secondary to brainstem stroke. Appreciate SLT assessment. Place corsafe, Started tube feeds 11/03. Appreciate GI consult: PEG today plan to try bolus feeds tomorrow (3) New onset a-fib: Paroxysmal Anticoagulation on hold as above for PEG placement, can now resume TSH WNL TTE - unremarkable Remains in NSR - no need for any rate/rhythm controlling medication at this time. (4) GERD (gastroesophageal reflux disease): Switched esomeprazole for famotidine 20mg PO BID (5) Hypothyroidism (acquired): TSH WNL Continue usual levothyroxine dosing. Admission and Anticipated Discharge Date Admission Date: November 01, 2020 Subjective patient doing well today, got his PEG tube he is anxious to leave, discussed that we are still working on insurance authorization for his tube feeds with [facility] will continue tube feed infusion through the night, try bolus feedings tomorrow and Tuesday gave script to CM to send to [facility], appreciate nutrition recommendations for feedings updated his at the bedside Review of Systems Review of Systems: All systems reviewed & are unremarkable except as noted in Subjective Physical Exam Constitutional: WD/WN, vitals as above Neck: trachea midline, no thyromegaly Respiratory: normal respiratory effort, lungs clear to auscultation Cardiovascular: RRR, no murmur, no edema Gastrointestinal (Abdomen): normal bowel sounds, soft, nontender, no hepatosplenomegaly Musculoskeletal: no cyanosis or clubbing, extremities motor strength 5/5 Skin: no rashes, warm and dry Neurologic: patellar DTR's 2+ bilat, sensation intact and PERRL, EOMI, accommodation nl, no face palsy, no dysarthria Psychiatric: A+Ox3, euthymic affect Lymphatic: no cervical or axillary lymphadenopathy Results & Data Results & Data ([facility]) Vital Signs (Past 12 Hours) Vital Signs Temp Pulse Pulse Pulse Resp BP Pulse Ox 11/07/20 13:25 20 L 70 87 20 128/83 95 11/07/20 13:10 20 L 72 87 20 125/87 95 11/07/20 12:55 20 L 78 87 20 131/85 95 11/07/20 11:27 36.6 C 20 L 87 87 20 118/80 92 11/07/20 08:13 36.5 C 84 16 89/58 L 94 Medications Administered Current Inpatient Medications Apixaban (Apixaban 5 Mg Tablet) 5 mg PO BID [facility] Stop: 12/03/20 20:59 Last Admin: 11/04/20 08:03 Dose: 5 mg Documented by: Atorvastatin Calcium (Atorvastatin 40 Mg Tab) 40 mg NG QPM [facility] Stop: 12/03/20 20:59 Last Admin: 11/06/20 21:16 Dose: 40 mg Documented by: Enteral Nutritional Formula (Fibersource Hn 1.2 Baljeet 1000 Ml Bag) 1,000 ml NG UD [facility]; Protocol Stop: 12/03/20 13:29 Last Admin: 11/05/20 00:20 Dose: 1,000 ml Documented by: Famotidine (Famotidine 20 Mg Tab) 20 mg PO BID [facility] Stop: 12/03/20 20:59 Last Admin: 11/07/20 07:19 Dose: Not Given Documented by: Cefazolin Sodium (Ancef 2000mg) 2,000 mg in 15 mls @ 3.75 mls/min IV TODAY@1230 [facility] Stop: 11/07/20 19:00 Last Admin: 11/07/20 15:15 Dose: Not Given Documented by: Levothyroxine Sodium (Levothyroxine Sodium 88 Mcg Tablet) 88 mcg NG DAILYBB [facility] Stop: 12/05/20 06:29 Last Admin: 11/07/20 07:18 Dose: Not Given Documented by: Miscellaneous Information (Pharmacist Discharge Med Rec Consult) 1 ea N/A UD PRN PRN Reason: Consult Stop: 12/01/20 07:11 Sterile Water (Tube Feeding Water Flush) 150 ml NG Q4H [facility] Stop: 12/03/20 13:29 Last Admin: 11/07/20 15:15 Dose: Not Given Documented by: PG Care Time/CCT Total # of Minutes Spent Total Time Spent: 33 Total Time Spent with Patient: Total time spent is greater than 50% in coordination of care (as documented) at patient's floor/unit and/or counseling patient: two visits with patient and discussions with his discussed plans with CM and wrote for tube feeds, discussed with nutrition chart review, documentation Coding Level of Care Code 98422 Subseq Hosp Care Lvl 3 (25 - SIGNIFICANT, SEPARATELY IDENTIFIABLE ) Diagnoses Acute brainstem stroke I63.9 Oropharyngeal dysphagia R13.12 New onset a-fib I48.91 GERD (gastroesophageal reflux disease) K21.9 Hypothyroidism (acquired) E03.9
[2020-11-07] MEDS: ATORVASTATIN 40 MG TAB NG SCH (20:29)
[2020-11-08] MEDS: TUBE FEEDING WATER FLUSH NG SCH ×7 (01:32→20:51)
[2020-11-08] MEDS: FIBERSOURCE HN 1.2 CAL 1000 ML BAG NG SCH (04:54)
[2020-11-08] MEDS: LEVOTHYROXINE SODIUM 88 MCG TABLET NG SCH (06:05)
[2020-11-08] MEDS: FIBERSOURCE HN 1.2 CAL 1000 ML BAG GT SCH ×5 (09:02→20:52)
[2020-11-08] MEDS: APIXABAN 5 MG TABLET PO SCH ×2 (10:03→20:50)
[2020-11-08] MEDS: FAMOTIDINE 20 MG TAB PO SCH ×2 (10:03→20:51)
--- NOTE | 2020-11-08 10:39 | Hospitalist Progress Note ---
Date of Service November 08, 2020 Assessment & Plan (1) Acute brainstem stroke: Patient presented with strokelike symptoms with facial droop and headache. Decision to give TPA was garnered via telestroke patiently brought in via the stroke order set for further neurological evaluation and be placed in the intensive care unit for the first 24 hours. MRI confirmed brainstem stroke Repeat CT head with no ICH Symptoms stable but not significantly improving - see below for oropharyngeal dysphagia. Allow permissive hypertension 140-160mmHg Holding off antiplatelets per neuro recommendations as discussed with ICU team - favoring anticoagulation after tPA. resume Eliquis via PEG Start atorvastatin via Corsafe no new neuro deficits, ambulating in horner only issue is oropharyngeal dysphagia started on bolus feeds via PEG, see below (2) Oropharyngeal dysphagia: Secondary to brainstem stroke. Appreciate SLT assessment. Place corsafe, Started tube feeds 11/03. Appreciate GI consult: PEG placed 11/07 Fibersource tube feeds, directions: 350mL 5x/day, give at 0800, 1100, 1400, 1700 and 2000 free water: give 90mL before and after bolus tube feeds for total of 900mL a day of free water working on getting insurance auth, cannot submit until Tuesday morning (3) New onset a-fib: Paroxysmal Anticoagulation - Eliquis via PEG TTE - unremarkable Remains in NSR - no need for any rate/rhythm controlling medication at this time. (4) GERD (gastroesophageal reflux disease): Switched esomeprazole for famotidine 20mg PO BID (5) Hypothyroidism (acquired): TSH WNL Continue usual levothyroxine dosing. Admission and Anticipated Discharge Date Admission Date: November 01, 2020 Subjective patient feels great, sitting up in chair, shaved this morning d/w RN, placed orders for bolus tube feeds, see how he tolerates and he can manage at home just waiting on insurance auth for tube feeds check BMP tomorrow Review of Systems Review of Systems: All systems reviewed & are unremarkable except as noted in Subjective Physical Exam Constitutional: WD/WN, vitals as above Neck: trachea midline, no thyromegaly Respiratory: normal respiratory effort, lungs clear to auscultation Cardiovascular: RRR, no murmur, no edema Gastrointestinal (Abdomen): normal bowel sounds, soft, nontender, no hepatosplenomegaly Musculoskeletal: no cyanosis or clubbing, extremities motor strength 5/5 Skin: no rashes, warm and dry Neurologic: patellar DTR's 2+ bilat, sensation intact and PERRL, EOMI, accommodation nl, no face palsy, no dysarthria Psychiatric: A+Ox3, euthymic affect Lymphatic: no cervical or axillary lymphadenopathy Results & Data Results & Data ([facility]) Vital Signs (Past 12 Hours) Vital Signs Temp Pulse Resp BP Pulse Ox 11/08/20 08:14 36.7 C 75 16 106/61 94 Medications Administered Current Inpatient Medications Apixaban (Apixaban 5 Mg Tablet) 5 mg PO BID [facility] Stop: 12/03/20 20:59 Last Admin: 11/08/20 10:03 Dose: 5 mg Documented by: Atorvastatin Calcium (Atorvastatin 40 Mg Tab) 40 mg NG QPM [facility] Stop: 12/03/20 20:59 Last Admin: 11/07/20 20:29 Dose: 40 mg Documented by: Enteral Nutritional Formula (Fibersource Hn 1.2 Baljeet 1000 Ml Bag) 350 ml GT 0800,1100,1400,1700,2000 [facility]; Protocol Stop: 12/08/20 07:59 Last Admin: 11/08/20 09:02 Dose: 350 ml Documented by: Famotidine (Famotidine 20 Mg Tab) 20 mg PO BID [facility] Stop: 12/03/20 20:59 Last Admin: 11/08/20 10:03 Dose: 20 mg Documented by: Levothyroxine Sodium (Levothyroxine Sodium 88 Mcg Tablet) 88 mcg NG DAILYBB [facility] Stop: 12/05/20 06:29 Last Admin: 11/08/20 06:05 Dose: 88 mcg Documented by: Miscellaneous Information (Pharmacist Discharge Med Rec Consult) 1 ea N/A UD PRN PRN Reason: Consult Stop: 12/01/20 07:11 Sterile Water (Tube Feeding Water Flush) 180 ml NG 0800,1100,1400,1700,2000 [facility] Stop: 12/08/20 07:59 Last Admin: 11/08/20 09:02 Dose: 180 ml Documented by: PG Care Time/CCT Total # of Minutes Spent Total Time Spent with Patient: Total time spent is greater than 50% in coordination of care (as documented) at patient's floor/unit and/or counseling patient: Coding Level of Care Code 63241 Subseq Hosp Care Lvl 2 Diagnoses Acute brainstem stroke I63.9 Oropharyngeal dysphagia R13.12 New onset a-fib I48.91 GERD (gastroesophageal reflux disease) K21.9 Hypothyroidism (acquired) E03.9
[2020-11-08] MEDS: ATORVASTATIN 40 MG TAB NG SCH (20:51)
[2020-11-09] MEDS: LEVOTHYROXINE SODIUM 88 MCG TABLET NG SCH (05:59)
[2020-11-09 07:35] LABS: BUN Creatinine Ratio 14.5 (10-20); Calcium 8.9 mg/dl (8.5-10.1); Creatinine Clr Calc Pharmacy 63.7 ml/min; Est GFR (African American) 68.1 ml/min; Est GFR (Non-African American) 58.8 ml/min; Magnesium 2.2 mg/dl (1.8-2.4); Potassium 4.5 mmol/L (3.5-5.1)
[2020-11-09 07:36] LABS: Phosphorus 2.8 mg/dl (2.5-4.9)
[2020-11-09] MEDS: TUBE FEEDING WATER FLUSH NG SCH ×2 (08:12→11:10)
[2020-11-09] MEDS: FIBERSOURCE HN 1.2 CAL 1000 ML BAG GT SCH ×2 (08:12→11:10)
[2020-11-09] MEDS: FAMOTIDINE 20 MG TAB PO SCH (08:12)
[2020-11-09] MEDS: APIXABAN 5 MG TABLET PO SCH (08:12)
[2020-11-09] MEDS ORDERED: STROKE PATIENT DISCHARGE STA (11:01)
--- NOTE | 2020-11-09 11:08 | Discharge Summary ---
Date of Service November 09, 2020 Admission HPI Per Admitting Provider 65/M arrives for evaluation of stroke symptoms. 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 The patient noted that he had a headache and some slight dizziness. He took some Advil and got out of the truck. Once he was out of the truck, the headaches seem to worsen. He went inside the truck stop to take a shower and became very nauseated and started to vomit. Patient was unable to shower because of the dizziness and vomiting. As time passed, he noticed that he had some right-sided facial droop. Pt was a stroke alert in the ER and it was determined to be a tPa candidate Principal Diagnosis Acute brainstem stroke Discharge Exam Constitutional WD/WN, vitals as above Neck trachea midline, no thyromegaly Respiratory normal respiratory effort, lungs clear to auscultation Cardiovascular RRR, no murmur, no edema Gastrointestinal (Abdomen) normal bowel sounds, soft, nontender, no hepatosplenomegaly Musculoskeletal no cyanosis or clubbing, extremities motor strength 5/5 Skin no rashes, warm and dry Neurologic patellar DTR's 2+ bilat, sensation intact and PERRL, EOMI, accommodation nl, no face palsy, no dysarthria Psychiatric A+Ox3, euthymic affect Lymphatic no cervical or axillary lymphadenopathy Discharge Data Allergies Allergy/AdvReac Type Severity Reaction Status Date / Time No Known Allergies Allergy Verified 11/07/20 11:26 Consultations 11/01/20 06:49 ED Decision to Admit Stat 11/01/20 07:12 Consult Neurology Routine 11/01/20 07:15 Consult Bareback Rider Routine 11/01/20 11:07 Consult Cardiology Routine 11/03/20 12:27 Consult Gastroenterology Routine Procedures Performed Operation Date: 11/07/20 16:30 Actual Procedures p EGD Gastric Tube Placement - Jose J Bernal Case, DO Ordered Studies 11/01/20 05:22 CT angio head w con Urgent CT angio neck with con Urgent CT head/brain wo con Urgent 11/01/20 07:12 MR brain wo con Routine 11/02/20 07:00 CT head/brain wo con Routine Hospital Course (1) Acute brainstem stroke: Patient presented with strokelike symptoms with facial droop and headache. Decision to give TPA was garnered via telestroke patiently brought in via the stroke order set for further neurological evaluation and be placed in the intensive care unit for the first 24 hours. MRI confirmed brainstem stroke Repeat CT head with no ICH Symptoms stable but not significantly improving - see below for oropharyngeal dysphagia. Allow permissive hypertension 140-160mmHg Holding off antiplatelets per neuro recommendations as discussed with ICU team - favoring anticoagulation after tPA. resume Eliquis via PEG Start atorvastatin via Corsafe no new neuro deficits, ambulating in [place] only issue is oropharyngeal dysphagia started on bolus feeds via PEG, see below (2) Oropharyngeal dysphagia: Secondary to brainstem stroke. Appreciate SLT assessment. Place corsafe, Started tube feeds 11/03. Appreciate GI consult: PEG placed 11/07 Fibersource tube feeds, directions: 350mL 5x/day, give at 0800, 1100, 1400, 1700 and 2000 free water: give 90mL before and after bolus tube feeds for total of 900mL a day of free water working on getting insurance authorization, cannot submit until Tuesday morning however, he can be discharged today as we can provide two days worth of tube feeds (3) New onset a-fib: Paroxysmal Anticoagulation - Eliquis 5mg BID via PEG TTE - unremarkable Remains in NSR - no need for any rate/rhythm controlling medication at this time. (4) GERD (gastroesophageal reflux disease): Switched esomeprazole for famotidine 20mg PO BID (5) Hypothyroidism (acquired): TSH WNL Continue usual levothyroxine dosing. I certify that this patient is under my care and that I, or a physicians natacha campa working with me, had a face to-face encounter that meets the home health [id number] encounter requirements with this patient. The encounter with the patient was in whole, or in part, for the following medical condition, which is the primary reason for home health care (list medical condition): CVA- new PEG tube I certify that, based on my findings, the following services are medically necessary home health services: My clinical findings support the need for the above services because: Skilled Nsg Assessment Further, I certify that my clinical findings support that this patient is homebound (i.e. absences from home require considerable and taxing effort and are for medical reasons or jainism services or infrequently or of short duration when for other reasons) because: Transportation Assistance/Unable to Leave Home Unassisted Certification for Home Health Services: Based on the above findings, I certify that this patient is confined to the home and needs intermittent nursing home care, physical therapy and/or speech therapy or continues to need occupational therapy. The patient is under my care, and I have initiated the establishment of the plan of care. This patient will be followed by a physician who will periodically review the plan of care. Total Time Total Time Spent Total Time Spent (In Minutes): 32 Total Time Includes: Examination of the Patient, Discharge Planning and Medication Reconciliation Discharge Plan Discharge Items Patient Disposition: Home - Home Health Services Reason For Visit: STROKE S/P TPA Discharge Diagnosis: Brainstem stroke Dysphagia Paroxysmal atrial fibrillation Condition on Discharge: Good Goals: continue with tube feeds as instructed, give medications by PEG tube follow up with home health follow up with speech therapy Activity: Resume your previous activity Driving/Machine Use: No limitations Weightbearing: Full weightbearing Non-emergency contact: Primary Care Provider and Neurologist Call non-emergency contact if: you have any medication questions and your symptoms worsen Follow-up/Referrals: PCP,NO [Primary Care Provider] - Diet: Nothing by Mouth and Other - See Diet Comment Diet Comment: tube feeds as instructed Addtl Attending Provider Instructions: Medications: - ELIQUIS: 5mg twice a day for anticoagulation with atrial fibrillation - LIPITOR: 40mg daily to control cholesterol - PEPCID: 20mg twice a day give medications via PEG Tube feeds: Fibersource HN, give 350mL 5x a day at 0800, 1100, 1400, 1700 and 2000 free water boluses: give 90mL before and after bolus feeding for 900mL total a day home health arranged for Tuesday with [facility] Home health order: please have speech therapy evaluate and treat if those services are available, once done with home health then can go to speech therapy as outpatient Risk Factors for Stroke: You can reduce your chances of stroke by working with your medical provider to adopt a healthy lifestyle. Some specific ways to lower your chance of stroke are: * If you are a smoker, now is the time to stop smoking cigarettes * If you are diabetic, improve the control of your blood sugars * Avoid excessive amounts of alcohol * Control high blood pressure * Lose weight if you are overweight * Be sure to lead an active lifestyle * Eat a healthy diet low in salt, cholesterol and fat You should know about other risk factors for stroke that you are unable to control. These include: * Age 55 years or older * Male gender * Certain racial groups: , or / * Family History of Stroke, Mini stroke or Heart Attack * Sickle Cell Disease Follow Up: It is important for you to keep your follow up appointments with your medical provider. Who to Call and When: Medical Emergencies: Call 911 immediately if you experience any of the following warning signs and symptoms of Stroke: * Sudden numbness or weakness of the face, arm or leg, especially on one side of the body * Sudden confusion, trouble speaking or understanding * Sudden trouble seeing in one or both eyes * Sudden trouble walking, dizziness, loss of balance or coordination * Sudden severe headache with no cause Do not delay calling 911 if you experience any warning signs or symptoms of a stroke. Delay in seeking medical attention may affect what treatments can be given to you. . Pending Studies at Discharge: No Stand-Alone Forms: [facility], Smoking Cessation Medications and DC Order Prescriptions: New atorvastatin 40 mg Tablet 40 mg NG QPM 30 Days Qty: 30 RF: 3 famotidine 20 mg Tablet 20 mg feeding tube BID 30 Days Qty: 60 RF: 3 Eliquis 5 mg Tablet 5 mg feeding tube BID 30 Days Qty: 60 RF: 3 Continued levothyroxine 88 mcg tablet 88 mcg PO DAILY RF: 0 Discontinued esomeprazole magnesium [Nexium] 20 mg Capsule,Delayed Release(Dr/Ec) 20 mg PO DAILY RF: 0 Discharge Orders: Discharge Order (Routine); Ordered 11/09/20 Ordered By: Daniel Muñoz Admission Data Admit Date/Time: 11/01/20 07:15 Attending Provider: Daniel Muñoz Admit Provider: Toni Dawson Primary Care Provider: PCP,NO Other Providers: [facility],Home Healthcare ; Toni Dawson ; Luis Antonio Dash ; Charli Cabrera ; Carroll Crawford ; Wes Mata ; Júnior Bell ; Moustapha Dobson ; Andre Andrade ; Kb Rivera Jr ; Vito Wood ; Ondina Zambrano ; Alida Pink ; Bolivar Charles ; Bolivar Mueller ; Rufino Mcgee ; Gennaro Eid ; Trinidad Vogel ; Lasha Villalobos ; Sam Dorantes ; Slava Licona ; Ap Mcdonald Coding Level of Care Code D/C Day Management >30 mins Diagnoses Acute brainstem stroke I63.9 Oropharyngeal dysphagia R13.12 New onset a-fib I48.91 GERD (gastroesophageal reflux disease) K21.9 Hypothyroidism (acquired) E03.9
--- NOTE | 2020-11-09 14:58 | Pharmacy Report ---
Pharmacist Stroke Counseling - Date of Service November 09, 2020 - Scope: Pharmacy has been consulted to provide medication discharge counseling for this patient admitted with [ischemic stroke] [hemorrhagic stroke] [transient ischemic attack] as per the Pharmacist Discharge Counseling for Stroke Patients Annmarie mclean - Medications on Discharge: Home Medications Medication Instructions Recorded Confirmed levothyroxine 88 mcg PO DAILY 11/01/20 11/01/20 Medication Instructions Recorded apixaban [Eliquis] 5 mg FEEDING TUBE BID 30 Days #60 11/09/20 tab atorvastatin 40 mg NG QPM 30 Days #30 tab 11/09/20 famotidine 20 mg FEEDING TUBE BID 30 Days #60 11/09/20 tab - Action: The above medications, specifically ones for stroke treatment/prophylaxis, have been reviewed in detail with the patient and/or patient community relations representative(s) prior to discharge. This includes indication, common adverse reactions, drug interactions, and medication administration. Medication counseling has been employed using the teach-back method to ensure understanding. - Outcome: The patient and/or patient community relations representative(s) have demonstrated understanding of the medications. Additional comments: Reviewed all new medications with patient over the phone. Aware to stop nexium. He feels comfortable administering medications via NG tube. No pertinent positives on interview. No questions from patient. Thank you for allowing pharmacy to be involved in the care of this patient. Please call [phone] with any additional questions
== END 2020-11-09 15:06 | disposition home health service (06) | DRG 63 ==
LOC: ED 05:18 → 1E 07:15 → SUATTDRO 07:15 → 1E 09:14 → 2S 11-02 17:01 → 2N 11-06 10:56